=== PATIENT | male | born 1945 | race Caucasian/White ===

== ENCOUNTER → 2017-11-19 10:15 | Outpatient (CLI) | payer MEDICARE, SELFPAY ==
[2017-11-19 12:16] LABS: Add Manual Diff / Slide Review NO; Basophils Percent Auto 1.7 % (0-2); Eosinophils Percent Auto 1.6 % (2-4); Hematocrit 39.3 % (41-53); Lymphocytes Percent Auto 31.1 % (25-40); Mean Corpuscular Hemoglobin 27.6 PG (26-34); Mean Corpuscular Volume 83.7 fL (80-100); Monocytes Percent Auto 9.2 % (3-14); Neutrophils Absolute Auto 3900 /uL (3000-5900); Neutrophils Percent Auto 56.4 % (50-75); Platelet Count 205 X10^3/uL (150-400); Red Cell Distribution Width 14.4 % (11.6-14.8)
[2017-11-19 12:24] LABS: Hemoglobin A1C% w Est Avg Glu 6.3 % (4.0-6.0)
[2017-11-19 12:46] LABS: Blood Urea Nitrogen 19 mg/dL (9-20); Calcium 9.5 mg/dL (8.4-10.2); Carbon Dioxide 26 mmol/L (22-32); Chloride 104 mmol/L (98-107); Estimated Glomerular Filt Rate > 60.0 mL/min (>60); Glucose 62 mg/dL (80-110); HEMOLYSIS < 15 (0-50); Potassium 4.6 mmol/L (3.4-5.1); Sodium 143 mmol/L (137-145)
[2017-11-19 16:44] LABS: Hep C Virus Ab w/Reflex Quant NEGATIVE s/c (NEGATIVE)
== END ==
PROVIDERS: Family Provider Internal Medicine Gastroenterology; PCP Internal Medicine; Visit Provider Internal Medicine
DX: E11.9 Type 2 diabetes mellitus without complications (principal); Z11.59 Encounter for screening for other viral diseases
CPT/HCPCS: 36415; 80048; 83036; 85025; 86803

== ENCOUNTER 2017-12-18 07:25 | Day surgery (SDC) | payer MEDICARE, SELFPAY ==
--- NOTE | 2017-12-18 | PATH_ITS ---
[facility] Accession Number: [id number] . 01 Material submitted: . PART A: GASTRIC BIOPSIES PART B: ESOPHAGEAL BIOPSIES . 02 Diagnosis: A. Stomach, Biopsies: Superificial fragment of gastric mucosa with no diagnostic abnormality. No evidence of Helicobacter organisms on H/E stain. Negative for intestinal metaplasia, dysplasia or malignancy. . B. Esophagus, Biopsies: Squamocolumnar junctional mucosa with specialized intestinal metaplasia; please see comment. Negative for dysplasia or malignancy. [facility]/12/19/2017 . 02 Comment: Part B) The finding of specialized intestinal metaplasia in the gastroesophageal junction biopsy would be consistent with Alston's esophagus in the appropriate endoscopic setting. . 02 Electronically signed: . Phi Caballero MD, PhD, Pathologist NPI- [id number] . 01 Gross description: . Received two formalin-filled containers, both labeled with the patient's name: . A. In a container labeled gastric, the specimen consists of a 0.3 cm portion of tissue, entirely submitted in cassette A. B. In a container labeled esophagus, the specimen consists of two less than 0.1 cm to 0.1 cm portions of tissue, entirely submitted in cassette B. (DC:[id number]) /FRR . 02 Pathologist provided ICD-10: K22.70 . 02 CPT . 423097, 880828 Performed at: 01 [facility] [address], [place], [place] [id number] MD Rome Escamilla MD Phone: [phone] Performed at: 02 [facility] [address] [place], [place] [id number] MD Ken Berry MD Phone: [phone]
[2017-12-18 07:38] VITALS: BP 125/74; PULSE 60; RESP 16; TEMP 36.3; O2SAT 97; BMI 36.1
[2017-12-18] MEDS: MIDAZOLAM 5 MG/5 ML VIAL IV (08:26)
[2017-12-18] MEDS: fentaNYL 100 MCG/2 ML INJ IV (08:28)
[2017-12-18 08:42] VITALS: BP 127/72; PULSE 55; RESP 15; TEMP 35.8; O2SAT 96
[2017-12-18 08:46] VITALS: BP 130/71; PULSE 60; RESP 16; O2SAT 96
[2017-12-18 09:02] VITALS: BP 140/70; PULSE 56; RESP 16; TEMP 36.1; O2SAT 96
--- NOTE | 2017-12-25 13:07 | PM.OP.ENDO ---
Operative Date/Time/Diagnoses Date of procedure: 12/18/17 Time of procedure: 13:07 Pre-op diagnosis: Dysphagia, history of Alston's and GERD Post-op diagnosis: same Procedure & Clinicians Study performed: EGD Same procedure as scheduled: Yes (Same as preop dx) Surgeon: Natanael Razo Procedure Notes Procedure in detail: After informed consent was obtained the patient was placed in the left lateral decubitus position. The video upper scope was placed into the oropharynx and with the patient's health swelled into the esophagus. The esophagus, stomach, and duodenum were carefully examined. On withdrawal, retroflexed view the GE junction was performed. The scope was removed. The patient tolerated procedure well Blood loss none Complications none Sedation Versed 4 mg fentanyl 100 mcg IV titration Total sedation time 10 min Findings 1. Very small 1 cm or less tongue of abnormal tissue above the gastric folds. This was biopsied x2 to rule out Alston's esophagus. Otherwise the squamocolumnar junction was showing no evidence of inflammation. 2. Wide-open Schatzki's ring 3. Mild patchy erythema in the distal stomach biopsy to rule out Helicobacter 4. Normal duodenal bulb and sweep Patient be sent biopsy results. He is to stay on anti secretory medication. Further recommendations will follow the results of the biopsies. If he develops worsened dysphagia that may be due to the Schatzki's ring worsening.
== END 2017-12-18 09:07 | disposition home or self-care (01) ==
PROVIDERS: Family Provider Internal Medicine Gastroenterology; PCP Internal Medicine; Visit Provider Internal Medicine Gastroenterology
PROC: 0DJ08ZZ Inspection of Upper Intestinal Tract, Via Natural or Artificial Opening Endoscopic (ICD-10-PCS; CPT 43235; principal; 2017-12-18 08:30)
DX: K22.70 Barrett's esophagus without dysplasia (principal); K21.9 Gastro-esophageal reflux disease without esophagitis; Z87.19 Personal history of other diseases of the digestive system; K22.2 Esophageal obstruction; I25.10 Atherosclerotic heart disease of native coronary artery without angina pectoris; E11.9 Type 2 diabetes mellitus without complications; I10 Essential (primary) hypertension; E78.5 Hyperlipidemia, unspecified; Z79.4 Long term (current) use of insulin
CPT/HCPCS: 43239; 88305; J2250; J3010

== ENCOUNTER → 2018-01-23 07:14 | Outpatient (CLI) | payer MEDICARE, SELFPAY ==
[2018-01-23 08:19] LABS: Alanine Aminotransferase 30 IU/L (21-72); Albumin 4.1 g/dL (3.5-5.0); Albumin Globulin Ratio 1.5 (1.0-2.8); Alkaline Phosphatase 45 U/L (38-126); Aspartate Aminotransferase 24 IU/L (17-59); BUN Creatinine Ratio 23.8 (6-22); Bilirubin Total 0.9 mg/dL (0.2-1.3); Blood Urea Nitrogen 19 mg/dL (9-20); Calcium 9.1 mg/dL (8.4-10.2); Carbon Dioxide 25 mmol/L (22-32); Chloride 106 mmol/L (98-107); Estimated Glomerular Filt Rate > 60.0 mL/min (>60); Globulin 2.8 g/dL (1.7-4.1); Glucose 170 mg/dL (80-110); HEMOLYSIS < 15 (0-50); Magnesium 1.8 mg/dL (1.6-2.3); Potassium 4.6 mmol/L (3.4-5.1); Sodium 142 mmol/L (137-145); Total Protein 6.9 g/dL (6.3-8.2)
[2018-02-03 09:18] LABS: Lipoprofile NMR SEE SEPERATE REPORT
== END ==
PROVIDERS: Family Provider Internal Medicine Gastroenterology; PCP Internal Medicine; Visit Provider Specialist
DX: E78.2 Mixed hyperlipidemia (principal); I10 Essential (primary) hypertension; E11.9 Type 2 diabetes mellitus without complications
CPT/HCPCS: 36415; 80053; 83704; 83735

== ENCOUNTER 2018-07-30 07:02 | Day surgery (SDC) | payer MEDICARE, SELFPAY ==
--- NOTE | 2018-07-30 | PATH_ITS ---
[facility] Accession Number: [id number] . 01 Material submitted: . PART A: POLYPS TRANSVERSE COLON TIMES 2 PART B: TRANSVERSE COLON POLYP PART C: DESCENDING COLON POLYP . 02 Diagnosis: A. Transverse Colon, Polyps: Tubular adenoma x1. Serrated lesion, favor sessile serrated adenoma x1. . B. Transverse Colon, Polyp: Hyperplastic polyp. . C. Descending Colon, Polyp: Tubular adenoma. [facility]/07/31/2018 . 02 Electronically signed: . Phi Caballero MD, PhD, Pathologist NPI- [id number] . 01 Gross description: . Received three formalin-filled containers, each labeled with the patient's name: . A. In a container labeled polyps transverse colon x2, the specimen consists of four 0.1-0.7 cm portions of tissue, entirely submitted in cassette A. B. In a container labeled transverse colon polyp, the specimen consists of a 0.3 cm portion of tissue, entirely submitted in cassette B. C. In a container labeled descending colon polyp, the specimen consists of a 0.4 cm portion of tissue, entirely submitted in cassette C. (DC:[id number]) /FRR . 02 Pathologist provided ICD-10: D12.3, D12.4 . 02 CPT . 743153, 862394, 323869 Performed at: 01 [facility] [address] [place] [address], [place], [place] [id number] MD Rome Escamilla MD Phone: [phone] Performed at: 02 [facility] [place] [address] [place], [place] [id number] MD Fide Alves MD Phone: [phone]
[2018-07-30 07:35] VITALS: BP 158/69; PULSE 58; RESP 16; TEMP 36.4; O2SAT 94; BMI 37.2
--- NOTE | 2018-07-30 07:44 | PM.HP.1 ---
History of Present Illness Date Patient Seen: 07/30/18 Chief complaint: Colonoscopy Narrative: 73-year-old male with multiple medical problems who is here for colon polyp surveillance. The patient has had a colonoscopy in July 2015 which revealed multiple polyps Patient History Medical History Barretts esophagus (Acute) Coronary artery disease (Acute) GERD (gastroesophageal reflux disease) (Acute) Heart attack (Acute ~09/2016) History of colon polyps (Acute) Hyperlipidemia (Acute) Hypertension (Acute) Obese (Acute) Type 2 diabetes mellitus (Acute) Surgical History H/O basal cell carcinoma excision (Acute ~2005) H/O eye surgery (Acute) History of esophagogastroduodenoscopy (EGD) (Acute) S/P drug eluting coronary stent placement (Acute) Social History household members: spouse Family & Social History Social History: household members spouse Meds Home Medications Medication Instructions Recorded Confirmed Type glimepiride [Amaryl] 8 mg PO QDAY #0 09/22/16 07/30/18 History insulin lispro [Humalog U-100 15 unit SQ TIDCC #0 09/22/16 12/18/17 History Insulin] losartan [Cozaar] 50 mg PO QDAY #0 09/22/16 07/30/18 History metformin [Glucophage XR] 850 mg PO TID #0 09/22/16 07/30/18 History acetaminophen 1,000 mg PO PRN PRN 07/29/18 07/30/18 History aspirin 81 mg PO DAILY 07/29/18 07/30/18 History atorvastatin 80 mg PO DAILY 07/29/18 07/30/18 History carvedilol 25 mg PO BID 07/29/18 07/30/18 History cholecalciferol (vitamin D3) 5,000 unit PO DAILY 07/29/18 07/30/18 History [Vitamin D3] insulin glargine [Lantus Solostar 30 unit SUBCUT BID 07/29/18 07/30/18 History U-100 Insulin] insulin lispro [Humalog KwikPen 20 unit SUBCUT BID 07/29/18 07/30/18 History Insulin] losartan 100 mg PO DAILY 07/29/18 07/30/18 History nitroglycerin 0.4 mg SUBLINGUAL PRN PRN 07/29/18 07/30/18 History ranitidine HCl 150 mg PO BID 07/29/18 07/30/18 History Allergies Allergy/AdvReac Type Severity Reaction Status Date / Time No Known Drug Allergies Allergy Verified 07/30/18 07:49 Exam Narrative Exam Narrative: General: Patient is obese, not in apparent distress Cardiovascular: Regular rate and rhythm, no murmurs, rubs, or gallops; no evidence of edema; no palpable abdominal aortic aneurysm Gastrointestinal: Normoactive bowel sounds, soft, nontender, nondistended, no rebound tenderness, no hepatosplenomegaly, no evidence of hernia Assessment & Plan Assessment & Plan narrative: 73-year-old male with coronary artery disease, type 2 diabetes, and hypertension who is here for colon polyp surveillance Regarding the procedure(s), the risks and potential complications, benefits, and alternatives (including not doing the procedure) were discussed with the patient. The risks include but are not limited to bleeding, splenic injury, infection, perforation which may require surgical intervention, missed lesions, and adverse reactions to sedative medicines. After a question and answer period, the patient agreed to proceed with the procedure(s) and gives informed consent.
[2018-07-30] MEDS: SODIUM CHLORIDE 0.9% 1,000 ML 70 ML IV (08:20)
[2018-07-30] MEDS: MIDAZOLAM 5 MG/5 ML VIAL IV (08:30)
[2018-07-30] MEDS: fentaNYL 250 MCG/5 ML INJ IV (08:30)
--- NOTE | 2018-07-30 08:31 | PM.OP.ENDO ---
Operative Date/Time/Diagnoses Date of procedure: 07/30/18 Procedure Notes Procedure in detail: Surgeon: Jose Young MD Procedure: Colonoscopy with polypectomy Preoperative diagnosis: Colon polyp surveillance Postoperative diagnosis: Colon polyps x4 status post polypectomy, grade 2 internal hemorrhoids Medications: Conscious sedation using 6 mg IV of Midazolam and 200 mcg IV of Fentanyl Preanesthesia Assessment An H and P was performed/updated and the Px?s ASA class is 2. The procedure was discussed in detail with the patient. The potential risks and complications including infection, bleeding, missed lesions, perforation, need for surgery in case of perforation, prolonged hospital stay, and were explained. A brief question and answer period was allotted and once all questions were answered, informed consent was obtained. The patient was brought back to the procedure room and placed on standard monitoring. The patient?s vital signs were monitored continuously throughout the entire procedure. Prior to starting, a timeout was performed to confirm the patient?s identity, allergies, medications, and procedure. Procedure in detail The patient was placed in left lateral decubitus position and once adequate sedation was obtained a MARIAJOSE was performed. The digital rectal examination did not reveal any palpable lesions. The tip of the colonoscope was placed in the anal canal and advanced without difficulty all the way to the cecum which was identified by the appendiceal orifice and the ileocecal valve. Careful examination of all jacob of the colon was performed with irrigation of any residual stool. In the transverse colon, there was note of 2 sessile polyps measuring 6 mm and 10 mm. The polyps were removed by means of cold snare. Resection and retrieval were complete with minimal bleeding In the transverse colon, a 2 mm sessile polyp was found and removed by means of cold Jumbo forceps. Resection and retrieval were complete with minimal bleeding. In the descending colon, a 5 mm sessile polyp was found and removed by means of cold snare. Resection and retrieval were complete with minimal bleeding. Retroflexion was performed in the rectum which revealed grade 2 internal hemorrhoids The patient tolerated the procedure well and will be brought back to the recovery area to be discharged once criteria are met. The prep was judged to be good/excellent and adequate to identify polyps less than 5 mm. The withdrawal time was 13 min. The total physician intraservice time was 25 min. Complications There were no complications and estimated blood loss was minimal. Recommendations: Resume previous diet Continue outPx medications Follow up pathology results Repeat colonoscopy in 3 or 5 years depending on pathology results An emergency contact number was given to the patient for any complications related to the procedure
[2018-07-30 08:59] VITALS: BP 131/75; PULSE 60; RESP 15; TEMP 36.2; O2SAT 99
--- NOTE | 2018-07-30 09:00 | PM.DS.1 ---
History of Present Illness Chief complaint: Colonoscopy Narrative: 73-year-old male with multiple medical problems who is here for colon polyp surveillance. The patient has had a colonoscopy in July 2015 which revealed multiple polyps Discharge Providers Discharge Date: 07/30/18 Primary care physician: Walter Lieberman MD Discharge provider: Jose Young MD Exam Vital Signs (past 8 hours): - 07/30/18 07:35 Temperature 97.5 F L Pulse Rate 58 L Respiratory Rate 16 Blood Pressure 158/69 H Pulse Oximetry 94 Oxygen Delivery Method Room Air Narrative Exam Narrative: General: Patient is obese, not in apparent distress Cardiovascular: Regular rate and rhythm, no murmurs, rubs, or gallops; no evidence of edema; no palpable abdominal aortic aneurysm Gastrointestinal: Normoactive bowel sounds, soft, nontender, nondistended, no rebound tenderness, no hepatosplenomegaly, no evidence of hernia Discharge Plan Discharge Plan Patient Disposition: Home Discharge Med Rec/Prescriptions Prescriptions: Continued insulin lispro [Humalog U-100 Insulin] 100 UNIT/1 ML solution 15 unit SQ TIDCC Qty: 0 RF: 0 metformin [Glucophage XR] 500 MG tablet extended release 24 hr 850 mg PO TID Qty: 0 RF: 0 losartan [Cozaar] 50 MG tablet 50 mg PO QDAY Qty: 0 RF: 0 glimepiride [Amaryl] 4 MG tablet 8 mg PO QDAY Qty: 0 RF: 0 atorvastatin 80 mg Tablet 80 mg PO DAILY RF: 0 carvedilol 25 mg Tablet 25 mg PO BID RF: 0 acetaminophen 500 mg Tablet 1,000 mg PO PRN PRN (Reason: Pain) RF: 0 nitroglycerin 0.4 mg Tablet, Sublingual 0.4 mg SUBLINGUAL PRN PRN (Reason: Chest Pain) RF: 0 aspirin 81 mg Tablet,Chewable 81 mg PO DAILY RF: 0 ranitidine HCl 150 mg Capsule 150 mg PO BID RF: 0 losartan 100 mg Tablet 100 mg PO DAILY RF: 0 Humalog KwikPen Insulin 100 unit/mL Insulin Pen 20 unit SUBCUT BID RF: 0 Lantus Solostar U-100 Insulin 100 unit/mL (3 mL) Insulin Pen 30 unit SUBCUT BID RF: 0 cholecalciferol (vitamin D3) [Vitamin D3] 5,000 unit Tablet 5,000 unit PO DAILY RF: 0 Follow up/Referrals: Walter Lieberman MD [Primary Care Provider] - Discharge Orders: Discharge (Order); Ordered 07/30/18 Ordered By: Jose Young Provider Discharge Instructions Diet: Diet as Tolerated Visit Report/Discharge Packet Stand Alone Forms: Colonoscopy Result: [facility] Discharge Data Primary Care Provider: Walter Lieberman Attending Provider: Jose Young
[2018-07-30 09:04] VITALS: BP 127/77; PULSE 59; RESP 10; O2SAT 96
[2018-07-30 09:09] VITALS: BP 129/68; PULSE 55; RESP 15; O2SAT 97
[2018-07-30 09:14] VITALS: BP 127/70; PULSE 57; RESP 10; O2SAT 96
[2018-07-30 09:22] VITALS: BP 147/83; PULSE 61; RESP 16; TEMP 36.6; O2SAT 97
--- NOTE | 2018-07-30 09:25 | SUR.PHASEII ---
Call light provided. Spouse at bedside. Discharge instructions reviewed with pt and spouse.
== END 2018-07-30 09:39 | disposition home or self-care (01) ==
PROVIDERS: Family Provider Internal Medicine Gastroenterology; PCP Internal Medicine; Visit Provider Internal Medicine Gastroenterology
PROC: 0DJD8ZZ Inspection of Lower Intestinal Tract, Via Natural or Artificial Opening Endoscopic (ICD-10-PCS; CPT 45378; principal; 2018-07-30 08:30)
DX: Z86.010 Personal history of colon polyps (principal); K64.1 Second degree hemorrhoids; D12.3 Benign neoplasm of transverse colon; D12.4 Benign neoplasm of descending colon; I25.10 Atherosclerotic heart disease of native coronary artery without angina pectoris; E11.9 Type 2 diabetes mellitus without complications; E78.5 Hyperlipidemia, unspecified; I10 Essential (primary) hypertension; K21.9 Gastro-esophageal reflux disease without esophagitis; Z79.4 Long term (current) use of insulin
CPT/HCPCS: 45380; 88305; J2250; J3010

== ENCOUNTER → 2018-08-05 07:29 | Outpatient (CLI) | payer MEDICARE, SELFPAY ==
[2018-08-05 09:45] LABS: Alanine Aminotransferase 34 IU/L (21-72); Albumin 4.3 g/dL (3.5-5.0); Albumin Globulin Ratio 1.4 (1.0-2.8); Alkaline Phosphatase 49 U/L (38-126); Aspartate Aminotransferase 24 IU/L (17-59); BUN Creatinine Ratio 18.8 (6-22); Bilirubin Total 0.9 mg/dL (0.2-1.3); Blood Urea Nitrogen 15 mg/dL (9-20); Calcium 9.1 mg/dL (8.4-10.2); Carbon Dioxide 26 mmol/L (22-32); Chloride 100 mmol/L (98-107); Estimated Glomerular Filt Rate > 60.0 mL/min (>60); Glucose 163 mg/dL (80-110); HEMOLYSIS < 15 (0-50); Magnesium 1.8 mg/dL (1.6-2.3); Potassium 4.7 mmol/L (3.4-5.1); Sodium 137 mmol/L (137-145); Total Protein 7.3 g/dL (6.3-8.2)
[2018-08-07 12:00] LABS: Lipoprofile NMR SEE SEPARATE REPORTS
== END ==
PROVIDERS: Family Provider Internal Medicine; PCP Internal Medicine; Visit Provider Specialist
DX: E78.2 Mixed hyperlipidemia (principal); I10 Essential (primary) hypertension
CPT/HCPCS: 36415; 80053; 83704; 83735

== ENCOUNTER → 2019-05-04 08:55 | Outpatient (CLI) | payer MEDICARE, SELFPAY ==
[2019-05-04 09:54] LABS: Alanine Aminotransferase 20 IU/L (<50); Albumin 4.2 g/dL (3.5-5.0); Albumin Globulin Ratio 1.6 (1.0-2.8); Alkaline Phosphatase 52 U/L (38-126); Aspartate Aminotransferase 21 IU/L (17-59); Blood Urea Nitrogen 14 mg/dL (9-20); Calcium 9.9 mg/dL (8.4-10.2); Carbon Dioxide 22 mmol/L (22-32); Chloride 102 mmol/L (98-107); Estimated Glomerular Filt Rate > 60.0 mL/min (>60); Globulin 2.6 g/dL (1.7-4.1); Glucose 194 mg/dL (80-110); HEMOLYSIS < 15 (0-50); Magnesium 1.7 mg/dL (1.6-2.3); Potassium 4.6 mmol/L (3.4-5.1); Sodium 136 mmol/L (137-145); Total Protein 6.8 g/dL (6.3-8.2)
[2019-05-07 10:58] LABS: Lipoprofile NMR SEE SEPERATE REPORT
== END ==
PROVIDERS: Family Provider Internal Medicine; PCP Internal Medicine; Visit Provider Specialist
DX: E78.2 Mixed hyperlipidemia (principal); I10 Essential (primary) hypertension
CPT/HCPCS: 36415; 80053; 83704; 83735

== ENCOUNTER 2019-06-15 12:09 | Emergency (ER) | payer MEDICARE, SELFPAY ==
[2019-06-15 12:10] VITALS: BP 194/81; PULSE 68; RESP 14; TEMP 36.7; O2SAT 100; BMI 37.5
[2019-06-15 12:25] VITALS: PULSE 68
--- NOTE | 2019-06-15 12:25 | DI.RAD.S_ITS ---
PROCEDURE: XR SHOULDER RT MIN 2V INDICATIONS: fall, right shoulder pain, worse w/ movement up TECHNIQUE: 3 views of the shoulder were acquired. COMPARISON: [facility], , SHOULDER MINIMUM 2VIEW RIGHT, 05/29/2017, 9:18. FINDINGS: Bones: No fractures identified. Mild subluxation of the distal clavicle in relation to the acromion. A small ossicle at the acromion appears similar to the prior radiographs from 2018. No suspicious bony lesions. Visualized ribs appear intact. Degenerative change and hypertrophy at the acromioclavicular joint. Soft tissues: No suspicious soft tissue calcifications. IMPRESSION: Mild subluxation of the distal clavicle in relation to the acromion. No acute fracture identified. Dictated by: Vitor Amin M.D. on 06/15/2019 at 13:10 Approved by: Vitor Amin M.D. on 06/15/2019 at 13:12
--- NOTE | 2019-06-15 14:01 | ED.GENADULT ---
HPI - General Adult General Chief complaint: Extremity Injury, Upper Stated complaint: Fell On Steps Hurt Right Upper Extremities Time Seen by Provider: 06/15/19 13:45 Source: patient Mode of arrival: Ambulatory Limitations: no limitations History of Present Illness HPI narrative: 74-year-old male here for evaluation of right shoulder injury. Patient states that earlier today he was going down the stairs of his deck and slipped on some ice. States that he thought he landed on his right shoulder. Did not hit his head. No loss of consciousness. Is on aspirin but no other anticoagulation. No other injuries reported from the event. Related Data Home Medications Medication Instructions Recorded Confirmed glimepiride [Amaryl] 8 mg PO QDAY #0 09/22/16 07/30/18 insulin lispro [Humalog U-100 15 unit SQ TIDCC #0 09/22/16 12/18/17 Insulin] losartan [Cozaar] 50 mg PO QDAY #0 09/22/16 07/30/18 metformin [Glucophage XR] 850 mg PO TID #0 09/22/16 07/30/18 Humalog KwikPen Insulin 20 unit SUBCUT BID 07/29/18 07/30/18 Lantus Solostar U-100 Insulin 30 unit SUBCUT BID 07/29/18 07/30/18 acetaminophen 1,000 mg PO PRN PRN 07/29/18 07/30/18 aspirin 81 mg PO DAILY 07/29/18 07/30/18 atorvastatin 80 mg PO DAILY 07/29/18 07/30/18 carvedilol 25 mg PO BID 07/29/18 07/30/18 cholecalciferol (vitamin D3) 5,000 unit PO DAILY 07/29/18 07/30/18 [Vitamin D3] losartan 100 mg PO DAILY 07/29/18 07/30/18 nitroglycerin 0.4 mg SUBLINGUAL PRN PRN 07/29/18 07/30/18 ranitidine HCl 150 mg PO BID 07/29/18 07/30/18 Previous Rx's Medication Instructions Recorded tramadol [Ultram] 50 mg PO Q6H PRN #7 tab 06/15/19 Allergies Allergy/AdvReac Type Severity Reaction Status Date / Time No Known Drug Allergies Allergy Verified 06/15/19 12:25 Review of Systems Constitutional Constitutional: Denies fever(s), Denies headache(s) and Denies weakness ENT Ears, Nose, Mouth, and Throat: Denies vertigo, Denies dizziness, Denies headache(s), Denies neck pain and Denies disequilibrium Cardiovascular Cardiovascular: Denies chest pain and Denies dyspnea Respiratory Respiratory: Denies dyspnea Gastrointestinal Gastrointestinal: Denies abdominal pain, Denies nausea and Denies vomiting Musculoskeletal Musculoskeletal: Denies back pain and Denies neck pain Comments: Right shoulder pain Integumentary/Breasts Skin/Breast: Denies lesions and Denies rash Neurologic Neurologic: Denies behavioral changes, Denies confusion, Denies vertigo, Denies dizziness, Denies headache(s), Denies disequilibrium and Denies weakness Psychiatric Psychiatric: Denies behavioral changes and Denies confusion Hematologic/Lymphatic Hematologic/Lymphatic: Denies easy bleeding and Denies easy bruising Patient History Medical History Barretts esophagus (Acute) Coronary artery disease (Acute) GERD (gastroesophageal reflux disease) (Acute) Heart attack (Acute ~09/2016) History of colon polyps (Acute) Hyperlipidemia (Acute) Hypertension (Acute) Obese (Acute) Type 2 diabetes mellitus (Acute) Surgical History (Updated 07/29/18 @ 14:54 by Yadi Reynoso RN) H/O basal cell carcinoma excision (Acute ~2005) H/O eye surgery (Acute) History of esophagogastroduodenoscopy (EGD) (Acute) S/P drug eluting coronary stent placement (Acute) Social History household members: spouse Smoking Status: Never smoker Smoking Status: Never smoker alcohol intake frequency: 0-2 drinks per day Substance Use Type: does not use Exam Initial Vital Signs Initial Vital Signs: Vital Signs Temperature 98.1 F 06/15/19 12:10 Pulse Rate 68 06/15/19 12:10 Respiratory Rate 14 06/15/19 12:10 Blood Pressure 194/81 H 06/15/19 12:10 Pulse Oximetry 100 06/15/19 12:10 Const General: cooperative, comfortable and well developed Limitations: mental status not altered HENMT Head: normal to inspection and normocephalic Resp Effort & Inspection: normal respiratory effort Auscultation: clear to auscultation bilaterally Cardio Rate: regular rate Rhythm: regular rhythm Back/Spine/Pelvis Cervical Spine: No cervical spinal tenderness Thoracic/Lumbar Spine: No thoracic spinal tenderness and No lumbar spinal tenderness Skin Lesions: no lesions Rashes: no rashes Neuro General: alert, awake and oriented x3 Cognition: normal cognition Speech: speech normal Extrem Other: Patient has tenderness to palpation over the AC joint of the right shoulder. Right shoulder range of motion limited secondary to pain. No other extremity abnormalities found Scores GCS Causey coma scale eye opening: Spontaneous Pb coma scale verbal response: Orientated Pb coma scale motor response: Obey commands Causey coma scale total score: 15 Nexus Score for C-Spine Focal Neurologic deficit present: No Midline spinal tenderness present: No Altered level of conciousness present: No Intoxication present: No Distracting Injury Present: No Nexus Criteria for C-spine: 0 Course Orders Ordered: ED Orders 06/15/19 12:25 XR shoulder RT min 2V Stat Vital Signs Vital signs: Vital Signs - 8 hr 06/15/19 12:10 06/15/19 12:25 Temperature 98.1 F Pulse Rate 68 Pulse Rate [Right Radial] 68 Respiratory Rate 14 Blood Pressure 194/81 H Pulse Oximetry 100 Medical Decision Making Imaging Data Extremity x-ray #1: Radiologist's Impression: [address] [address] XRay Report Signed Patient: [place] Moe KMR#: [id number] : 6Acct:[id number] Age/Sex: 74 / MDate of Service: 06/15/19 Loc: ED Accession Number: [id number] Procedure: XR shoulder RT min 2V Ordering Provider: Kelly Reis D.O. PROCEDURE: XR SHOULDER RT MIN 2V INDICATIONS: fall, right shoulder pain, worse w/ movement up TECHNIQUE: 3 views of the shoulder were acquired. COMPARISON: [facility], , SHOULDER MINIMUM 2VIEW RIGHT, 05/29/2017, 9:18. FINDINGS: Bones: No fractures identified. Mild subluxation of the distal clavicle in relation to the acromion. A small ossicle at the acromion appears similar to the prior radiographs from 2018. No suspicious bony lesions. Visualized ribs appear intact. Degenerative change and hypertrophy at the acromioclavicular joint. Soft tissues: No suspicious soft tissue calcifications. IMPRESSION: Mild subluxation of the distal clavicle in relation to the acromion. No acute fracture identified. Dictated by: Vitor Amin M.D. on 06/15/2019 at 13:10 Approved by: Vitor Amin M.D. on 06/15/2019 at 13:12 [facility] Narrative Medical decision making narrative: History and physical exam and x-rays consistent with a right AC shoulder separation. No other signs of fractures or dislocations. No other injuries reported by the patient or found on the exam. Did not feel any to head CT or cervical spine CT. I did discuss this diagnosis with him. Will do symptom treatment. He is going to contact his primary doctor about a follow-up with physical therapy. He is given return precautions and follow-up instructions. He expressed understanding and agreement plan. Discharge Plan Departure Patient Disposition: Home Clinical Impression: Shoulder separation Discharge Date/Time: 06/15/19 14:08 Instructions: How To Perform RICE (Rest, Ice, Compress, Elevate), AC Joint Separation Activity Restrictions/Additional Instructions: Recommend that tomorrow you contact your primary doctor's office about a referral to get physical therapy. Take the medications as directed. Return to the emergency department for any new or worsening symptoms Prescriptions: New tramadol [Ultram] 50 mg tablet 50 mg PO Q6H PRN (Reason: pain) Qty: 7 RF: 0 No Action insulin lispro [Humalog U-100 Insulin] 100 UNIT/1 ML solution 15 unit SQ TIDCC Qty: 0 RF: 0 metformin [Glucophage XR] 500 MG tablet extended release 24 hr 850 mg PO TID Qty: 0 RF: 0 losartan [Cozaar] 50 MG tablet 50 mg PO QDAY Qty: 0 RF: 0 glimepiride [Amaryl] 4 MG tablet 8 mg PO QDAY Qty: 0 RF: 0 atorvastatin 80 mg Tablet 80 mg PO DAILY RF: 0 carvedilol 25 mg Tablet 25 mg PO BID RF: 0 acetaminophen 500 mg Tablet 1,000 mg PO PRN PRN (Reason: Pain) RF: 0 nitroglycerin 0.4 mg Tablet, Sublingual 0.4 mg SUBLINGUAL PRN PRN (Reason: Chest Pain) RF: 0 aspirin 81 mg Tablet,Chewable 81 mg PO DAILY RF: 0 ranitidine HCl 150 mg Capsule 150 mg PO BID RF: 0 losartan 100 mg Tablet 100 mg PO DAILY RF: 0 Humalog KwikPen Insulin 100 unit/mL Insulin Pen 20 unit SUBCUT BID RF: 0 Lantus Solostar U-100 Insulin 100 unit/mL (3 mL) Insulin Pen 30 unit SUBCUT BID RF: 0 cholecalciferol (vitamin D3) [Vitamin D3] 5,000 unit Tablet 5,000 unit PO DAILY RF: 0 Referrals: Madi Parra MD [Primary Care Provider] -
== END 2019-06-15 14:08 | disposition home or self-care (01) ==
PROVIDERS: Emergency Provider Emergency Medicine; Family Provider Internal Medicine; PCP Internal Medicine
DX: S43.006A Unspecified dislocation of unspecified shoulder joint, initial encounter (principal); W10.9XXA Fall (on) (from) unspecified stairs and steps, initial encounter; Y93.29 Activity, other involving ice and snow
CPT/HCPCS: 73030; 99283

== ENCOUNTER → 2020-01-16 08:05 | Outpatient (CLI) | payer MEDICARE, SELFPAY ==
[2020-01-16 10:34] LABS: Alanine Aminotransferase 24 IU/L (<50); Albumin 4.3 g/dL (3.5-5.0); Albumin Globulin Ratio 1.5 (1.0-2.8); Alkaline Phosphatase 45 U/L (38-126); Aspartate Aminotransferase 25 IU/L (17-59); BUN Creatinine Ratio 24.1 (6-22); Blood Urea Nitrogen 20 mg/dL (9-20); Calcium 9.2 mg/dL (8.4-10.2); Carbon Dioxide 23 mmol/L (22-32); Chloride 103 mmol/L (98-107); Estimated Glomerular Filt Rate > 60.0 mL/min (>60); Globulin 2.8 g/dL (1.7-4.1); Glucose 161 mg/dL (80-110); HEMOLYSIS < 15 (0-50); Magnesium 1.8 mg/dL (1.6-2.3); Potassium 4.4 mmol/L (3.4-5.1); Sodium 136 mmol/L (137-145); Total Protein 7.1 g/dL (6.3-8.2)
[2020-02-15 14:39] LABS: LDL Particle 861
[2020-02-15 14:41] LABS: LDL-Cholsterol 53
[2020-02-15 14:42] LABS: HDL-Cholesterol 38; Triglycerides 160
[2020-02-15 14:43] LABS: Cholesterol, Total 118; HDL-Particle (Total) 28.3; Small LDL- Particle 576
[2020-02-15 14:44] LABS: LDL Size 20.1
[2020-02-15 14:46] LABS: LP-IR Score 75
== END ==
PROVIDERS: Family Provider Internal Medicine; PCP Internal Medicine; Referring Provider Specialist; Visit Provider Specialist
DX: E78.2 Mixed hyperlipidemia (principal); I10 Essential (primary) hypertension
CPT/HCPCS: 36415; 80053; 80061; 83704; 83735

== ENCOUNTER → 2020-09-22 09:51 | Outpatient (CLI) | payer MEDICARE, SELFPAY ==
[2020-09-22 10:57] LABS: Alanine Aminotransferase 21 IU/L (<50); Albumin Globulin Ratio 1.4 (1.0-2.8); Alkaline Phosphatase 65 U/L (38-126); Aspartate Aminotransferase 26 IU/L (17-59); BUN Creatinine Ratio 18.8 (6-22); Bilirubin Total 0.8 mg/dL (0.2-1.3); Blood Urea Nitrogen 15 mg/dL (9-20); Calcium 9.2 mg/dL (8.4-10.2); Carbon Dioxide 25 mmol/L (22-32); Chloride 104 mmol/L (98-107); Estimated Glomerular Filt Rate > 60.0 mL/min (>60); Globulin 2.8 g/dL (1.7-4.1); Glucose 153 mg/dL (80-110); HEMOLYSIS < 15 (0-50); Magnesium 1.9 mg/dL (1.6-2.3); Potassium 4.9 mmol/L (3.4-5.1); Sodium 137 mmol/L (137-145); Total Protein 6.8 g/dL (6.3-8.2)
[2020-09-24 07:36] LABS: Cholesterol, Total 120 mg/dL (100-199); HDL-Cholesterol 45 mg/dL (>39); HDL-Particle (Total) 29.1 umol/L (>=30.5); LDL Particle 993 nmol/L (<1000); LDL Size 20.3 nm (>20.5); LDL-Cholsterol 60 mg/dL (0-99); LP-IR Score 45 (<=45); Small LDL- Particle 635 nmol/L (<=527); Triglycerides 75 mg/dL (0-149)
== END ==
PROVIDERS: Family Provider Internal Medicine; PCP Internal Medicine; Referring Provider Specialist; Visit Provider Specialist
DX: I10 Essential (primary) hypertension (principal); E78.2 Mixed hyperlipidemia; E11.9 Type 2 diabetes mellitus without complications; Z79.4 Long term (current) use of insulin
CPT/HCPCS: 36415; 80053; 80061; 83704; 83735

== ENCOUNTER → 2021-01-25 10:10 | Outpatient (CLI) | payer MEDICARE, SELFPAY | PROVIDERS: Family Provider Internal Medicine; PCP Internal Medicine; Referring Provider Internal Medicine; Visit Provider Internal Medicine | DX: Z11.59 Encounter for screening for other viral diseases (principal) | CPT/HCPCS: 36415; 86803 ==

== ENCOUNTER → 2021-07-12 09:30 | Outpatient (CLI) | payer MEDICARE, SELFPAY ==
[2021-07-12 10:20] LABS: Alanine Aminotransferase 22 IU/L (<50); Albumin 4.4 g/dL (3.5-5.0); Albumin Globulin Ratio 1.7 (1.0-2.8); Alkaline Phosphatase 53 U/L (38-126); Aspartate Aminotransferase 29 IU/L (17-59); BUN Creatinine Ratio 17.4 (6-22); Blood Urea Nitrogen 16 mg/dL (9-20); Calcium 9.1 mg/dL (8.4-10.2); Carbon Dioxide 25 mmol/L (22-32); Chloride 104 mmol/L (98-107); Estimated Glomerular Filt Rate > 60.0 mL/min (>60); Globulin 2.6 g/dL (1.7-4.1); Glucose 180 mg/dL (80-110); HEMOLYSIS < 15 (0-50); Magnesium 1.7 mg/dL (1.6-2.3); Potassium 4.7 mmol/L (3.4-5.1); Sodium 136 mmol/L (137-145)
[2021-07-14 10:37] LABS: Cholesterol, Total 124 mg/dL (100-199); HDL-Cholesterol 45 mg/dL (>39); HDL-Particle (Total) 30.1 umol/L (>=30.5); Historical Reading Comment: (.); LDL Particle 735 nmol/L (<1000); LDL Size 20.7 nm (>20.5); LDL-Cholsterol 61 mg/dL (0-99); LP-IR Score 53 (<=45); Small LDL- Particle 336 nmol/L (<=527); Triglycerides 98 mg/dL (0-149)
== END ==
PROVIDERS: Family Provider Internal Medicine; PCP Internal Medicine; Referring Provider Physician Assistant Medical; Visit Provider Specialist
DX: I10 Essential (primary) hypertension (principal); E78.2 Mixed hyperlipidemia
CPT/HCPCS: 36415; 80053; 80061; 83704; 83735

== ENCOUNTER 2021-07-17 09:35 | Emergency (ER) | payer MEDICARE, SELFPAY ==
[2021-07-17 09:41] VITALS: BP 152/65; PULSE 60; RESP 14; TEMP 36.5; O2SAT 99; BMI 37.5
--- NOTE | 2021-07-17 09:47 | DI.US.S_ITS ---
PROCEDURE: US PERIPH VENOUS LOW EXTREM RT INDICATIONS: EDEMA X 1 WEEK TECHNIQUE: Real-time imaging, as well as color and pulse Doppler interrogation, were performed of the lower extremity deep veins from the inguinal ligament to the popliteal fossa. COMPARISON: None. FINDINGS: The common femoral, femoral and popliteal veins are normally compressible, and free of intraluminal thrombus. Color and pulse Doppler demonstrate normal phasic intraluminal flow. There is normal augmentation response to distal compression maneuver. IMPRESSION: No deep venous thrombosis. Dictated by: Vivian Irby M.D. on 07/17/2021 at 10:44 Approved by: Vivian Irby M.D. on 07/17/2021 at 11:27
[2021-07-17 09:55] VITALS: PULSE 60
--- NOTE | 2021-07-17 09:56 | ED.EXTPRO ---
HPI - Extremity Problem General Chief complaint: Extremity Problem,Nontraumatic Stated complaint: rt leg pain, swelling Time Seen by Provider: 07/17/21 09:56 Source: patient and family Mode of arrival: Ambulatory History of Present Illness HPI Narrative: Nine days ago the patient was bent forward, leaning into his car. His right tibia was against the edge of the car. As he leaned into the car, he felt a pop in his right calf. The initial severe pain is lessened. Pulmonary is focused in the posterior calf. has swelling to the right anterior tibia area, as well as down to the right ankle. He was initially quite limited in his motion. He is now walking much better. The swelling persists. He has no his history of DVT. He is not on anticoagulants. He has no chest pain, cough, dyspnea or hemoptysis. Related Data Home Medications Medication Instructions Recorded Confirmed glimepiride 4 mg tablet (Amaryl) 8 mg PO QDAY #0 09/22/16 07/30/18 insulin lispro 100 unit/mL 15 unit SQ TIDCC #0 09/22/16 12/18/17 subcutaneous solution (Humalog U-100 Insulin) losartan 50 mg tablet (Cozaar) 50 mg PO QDAY #0 09/22/16 07/30/18 metformin 500 mg tablet,extended 850 mg PO TID #0 09/22/16 07/30/18 release 24 hr (Glucophage XR) acetaminophen 500 mg tablet 1,000 mg PO PRN PRN 07/29/18 07/30/18 aspirin 81 mg chewable tablet 81 mg PO DAILY 07/29/18 07/30/18 atorvastatin 80 mg tablet 80 mg PO DAILY 07/29/18 07/30/18 carvedilol 25 mg tablet 25 mg PO BID 07/29/18 07/30/18 cholecalciferol (vitamin D3) 125 5,000 unit PO DAILY 07/29/18 07/30/18 mcg (5,000 unit) tablet (Vitamin D3) insulin glargine 100 unit/mL (3 30 unit SUBCUT BID 07/29/18 07/30/18 mL) subcutaneous pen (Lantus Solostar U-100 Insulin) insulin lispro 100 unit/mL 20 unit SUBCUT BID 07/29/18 07/30/18 subcutaneous pen (Humalog KwikPen (U-100) Insulin) losartan 100 mg tablet 100 mg PO DAILY 07/29/18 07/30/18 nitroglycerin 0.4 mg sublingual 0.4 mg SUBLINGUAL PRN PRN 07/29/18 07/30/18 tablet ranitidine HCl 150 mg capsule 150 mg PO BID 07/29/18 07/30/18 Previous Rx's Medication Instructions Recorded tramadol 50 mg tablet (Ultram) 50 mg PO Q6H PRN #7 tab 06/15/19 Allergies Allergy/AdvReac Type Severity Reaction Status Date / Time No Known Drug Allergies Allergy Verified 07/17/21 09:46 Review of Systems Constitutional Constitutional: Denies chills, Denies fatigue, Denies fever(s) and Denies frequent falls ENT Ears, Nose, Mouth, and Throat: Denies vertigo and Denies dizziness Cardiovascular Cardiovascular: Denies chest pain, Denies rapid heart rate, Denies pedal edema and Denies dyspnea Respiratory Respiratory: Denies cough, Denies hemoptysis and Denies dyspnea Gastrointestinal Gastrointestinal: Denies abdominal pain Musculoskeletal Musculoskeletal: Reports as per HPI Integumentary/Breasts Skin/Breast: Denies change in pigmentation, Denies lesions and Denies rash Neurologic Neurologic: Denies confusion, Denies vertigo, Denies dizziness and Denies frequent falls Psychiatric Psychiatric: Denies confusion Endocrine Endocrine: Denies fatigue Hematologic/Lymphatic On Anticoagulants: No Patient History Medical History Barretts esophagus Coronary artery disease GERD (gastroesophageal reflux disease) Heart attack (~09/2016) History of colon polyps Hyperlipidemia Hypertension Obese Type 2 diabetes mellitus Surgical History H/O basal cell carcinoma excision (~2005) H/O eye surgery History of esophagogastroduodenoscopy (EGD) S/P drug eluting coronary stent placement Social History household members: spouse Smoking Status: Never smoker Smoking Status: Never smoker alcohol intake frequency: 0-2 drinks per day Substance Use Type: does not use Exam Initial Vital Signs Initial Vital Signs: Vital Signs Temperature 97.7 F 07/17/21 09:41 Pulse Rate 60 07/17/21 09:41 Respiratory Rate 14 07/17/21 09:41 Blood Pressure 152/65 H 07/17/21 09:41 Pulse Oximetry 99 07/17/21 09:41 Const General: cooperative, healthy appearing and comfortable [facility] Head: normocephalic and atraumatic Resp Effort & Inspection: normal respiratory effort Auscultation: clear to auscultation bilaterally Cardio Rate: regular rate Rhythm: regular rhythm Heart Sounds: S1 normal, S2 normal, no click, no murmurs and no rubs Skin General: no rashes or lesions noted Neuro General: patient alert, patient awake, patient oriented x3 and no focal motor deficits Extrem Other: Tenderness in the right calf muscle, palpable tear to the lateral aspect of the gastrocnemius muscle. Edema in the right calf, as well as the right anterior tibia. No tenderness along the tibia bone. Edema extends the ankle. His ankle is nontender. Homans sign is negative. The right dorsalis pedis pulses normal. Psych Mental Status: mental status grossly normal Course Orders Ordered: ED Orders 07/17/21 09:47 US periph venous low extrem rt Stat Vital Signs Vital signs: Vital Signs - 8 hr 07/17/21 09:41 07/17/21 09:55 Temperature 97.7 F Pulse Rate 60 Pulse Rate [Right Dorsalis Pedis] 60 Respiratory Rate 14 Blood Pressure 152/65 H Pulse Oximetry 99 MDM - Extremity (Nontraumatic) Imaging Data US - DVT: Radiologist's Impression: No evidence of right leg DVT. Discharge Plan Departure Patient Disposition: Home Clinical Impression: Gastrocnemius muscle tear Activity Restrictions/Additional Instructions: Tylenol as needed for pain. Walk on flat surfaces, slowly increase your pace. As you are feeling better, you can advance to inclines with your walking. Recheck with your doctor if not improved within 3 weeks. Return here as necessary. Prescriptions: No Action insulin lispro [Humalog U-100 Insulin] 100 UNIT/1 ML solution 15 unit SQ TIDCC Qty: 0 0RF metformin [Glucophage XR] 500 MG tablet extended release 24 hr 850 mg PO TID Qty: 0 0RF losartan [Cozaar] 50 MG tablet 50 mg PO QDAY Qty: 0 0RF glimepiride [Amaryl] 4 MG tablet 8 mg PO QDAY Qty: 0 0RF atorvastatin 80 mg Tablet 80 mg PO DAILY 0RF carvedilol 25 mg Tablet 25 mg PO BID 0RF acetaminophen 500 mg Tablet 1,000 mg PO PRN PRN (Reason: Pain) 0RF nitroglycerin 0.4 mg Tablet, Sublingual 0.4 mg SUBLINGUAL PRN PRN (Reason: Chest Pain) 0RF Label Comments: Hasn't needed since stents aspirin 81 mg Tablet,Chewable 81 mg PO DAILY 0RF ranitidine HCl 150 mg Capsule 150 mg PO BID 0RF losartan 100 mg Tablet 100 mg PO DAILY 0RF Humalog KwikPen Insulin 100 unit/mL Insulin Pen 20 unit SUBCUT BID 0RF Lantus Solostar U-100 Insulin 100 unit/mL (3 mL) Insulin Pen 30 unit SUBCUT BID 0RF cholecalciferol (vitamin D3) [Vitamin D3] 5,000 unit Tablet 5,000 unit PO DAILY 0RF tramadol [Ultram] 50 mg tablet 50 mg PO Q6H PRN (Reason: pain) Qty: 7 0RF Referrals: Hola Grayson MD [Primary Care Provider] -
[2021-07-17 11:44] VITALS: BP 142/78; PULSE 60; RESP 18; O2SAT 99
== END 2021-07-17 11:46 | disposition home or self-care (01) ==
PROVIDERS: Emergency Provider Emergency Medicine; Family Provider Internal Medicine; PCP Internal Medicine
DX: S86.111A Strain of other muscle(s) and tendon(s) of posterior muscle group at lower leg level, right leg, initial encounter (principal); X58.XXXA Exposure to other specified factors, initial encounter; Y93.89 Activity, other specified
CPT/HCPCS: 93971; 99283; 99284

== ENCOUNTER → 2021-10-23 09:27 | Outpatient (CLI) | payer MEDICARE, SELFPAY ==
[2021-10-23 10:21] LABS: Hematocrit 38.1 % (41-53); Hemoglobin 12.3 g/dL (13.5-17.5); Mean Corpuscular HGB Conc 32.3 % (30-36); Mean Corpuscular Hemoglobin 26.1 PG (26-34); Platelet Count 189 X10^3/uL (150-400); Red Blood Cell Count 4.71 X10^6/uL (4.5-5.9); Red Cell Distribution Width 15.7 % (11.6-14.8); White Blood Cell Count 5.8 X10^3/uL (4.5-11.0)
[2021-10-23 10:27] LABS: Hemoglobin A1C% w Est Avg Glu 7.5 % (4.0-6.0)
[2021-10-23 10:32] LABS: Alanine Aminotransferase 20 IU/L (<50); Albumin 4.4 g/dL (3.5-5.0); Albumin Globulin Ratio 1.4 (1.0-2.8); Alkaline Phosphatase 47 U/L (38-126); Aspartate Aminotransferase 24 IU/L (17-59); BUN Creatinine Ratio 14.7 (6-22); Bilirubin Total 0.9 mg/dL (0.2-1.3); Blood Urea Nitrogen 14 mg/dL (9-20); Calcium 9.1 mg/dL (8.4-10.2); Carbon Dioxide 29 mmol/L (22-32); Chloride 103 mmol/L (98-107); Estimated Glomerular Filt Rate > 60 mL/min (>60); Globulin 3.1 g/dL (1.7-4.1); Glucose 90 mg/dL (80-110); HEMOLYSIS < 15 (0-50); Sodium 138 mmol/L (137-145); Total Protein 7.5 g/dL (6.3-8.2)
[2021-10-23 10:42] LABS: Potassium 4.6 mmol/L (3.4-5.1)
[2021-10-23 10:55] LABS: Creatinine Urine Random 47.9 mg/dL
[2021-10-23 10:58] LABS: Microalbumi Creatinin Ratio Ur 20.8 ug/mg CR (<30)
[2021-10-23 11:02] LABS: Prostate Specific Antigen 5.69 ng/mL (0.10-4.00)
== END ==
PROVIDERS: Family Provider Internal Medicine; PCP Internal Medicine; Referring Provider Internal Medicine; Visit Provider Internal Medicine
DX: I10 Essential (primary) hypertension (principal); E11.59 Type 2 diabetes mellitus with other circulatory complications; I25.10 Atherosclerotic heart disease of native coronary artery without angina pectoris; N13.8 Other obstructive and reflux uropathy; N40.1 Benign prostatic hyperplasia with lower urinary tract symptoms
CPT/HCPCS: 36415; 80053; 82043; 82570; 83036; 84153; 84443; 85027

== ENCOUNTER → 2021-12-27 09:25 | Outpatient (CLI) | payer MEDICARE, SELFPAY ==
--- NOTE | 2022-01-09 17:14 | DIAB.INIT ---
Addendum entered by Yasmin Monahan 01/09/22 17:33: 12/27/21 Review of CGM data; highest elevations occur in the evening or afternoon 12-6p. Overall average 156 mg/dL BG. Infrequent lows but will address lows tx first and then address elevation. Hoping increase in activity will also help with elevations. Original Note: Initial Diabetes Education Assessment Name: Villa Moe Date: 12/27/21 Time: 047-3714w Dx: T2DM Provider: Aida Waller presents today with , Elise. States he is mostly concerned with how digestion works with CHO. States overall he feels comfortable with nutrition. Endorses a Mediterranean inspired diet. States he does have lows at night. Last low was last week. Does confirm lows with a finger stick. Gets a CGM alarm at 80mg/dL if BG is trending down. Treats lows with 4g CHO tablet and follows-up with spoon of jelly. Feels sweaty and may stay in 55-60mg/dl range for 20 min. Not following Rule of 15 for lows. Endorses difficulty with sleeping due to thinking and stress. Has received rec from PCP for book [employer]. Plans to check this out. Reports working on sadness. Food journal: 5a coffee and ff half n half 6-7a; eggs, abbott or sausage, cheese, pickles, jalapeno, +/- pc of fruit 0-15g CHO oatmeal with nuts and raisins butter and half n half 45g CHO cheerios and banan with milk 75g CHO toast with butter x 2 30g CHO 11a: nuts or fruit or mini kind bar or popcorn or avocado with triscuit or keoto chocolate or small peppermint paddy 0-30g CHO 2-3p: 6oz pro, small potaot or 1.5c mased with veggies (20-45g CHO) chx with brown rice and veggie 45-90g CHO pasta with sausage and veggies 60g CHO 5-6p: same as 11a Most meals are low to moderate in carb. There are a few high carb meals. Anthropometrics: Ht: 67 Wt: 256# last wt Physical Activity: no program. H/o treadmill, wt lifting and fidel chi via [employer]. 5000 steps per day. Self-Monitoring Blood Glucose: Dexcom CGM. 7day average: 1% very high 25% high 73% in range <1% low 0% very low Diabetes Medications: Metformin 850mg TID Glargine 30u Humalog 20-30u 5x per day Pertinent Labs: 7.5% 10/2021 Past Medical History: (Last Updated 10/23/21 @ 09:11 by Madi Parra MD) Barretts esophagus BPH w urinary obs/LUTS Coronary artery disease Essential hypertension GERD (gastroesophageal reflux disease) GERD without esophagitis Heart attack (~09/2016) History of colon polyps Mixed hyperlipidemia Obese Primary osteoarthritis involving multiple joints Severe obesity (BMI >= 40) Type 2 diabetes mellitus Type 2 diabetes mellitus with other circulatory complications Venous insufficiency Intervention: This participant was very receptive. Provided appropriate educational handouts. Discussed the following topics: Completed intake assessment. Discussed barriers to care. Rule of 15 for lows Stress management and mental health techniques and plan General recs for carb intake for meals and snacks Role of physical activity and following provider guidelines for safety Created SMART goals for patient self-care and success. Goals: Document lows, food intake and insulin units when low Practice Rule of 15 for lows occupational health nurse apple juice for lows Matt therapist Fidel chi 2x per week Treadmill 3x per week Follow-up: MANOLO MACIEL follow-up in 4 weeks Yasmin Monahan RDN, [facility] Certified Diabetes Care and Labeling Strategist P: [phone] Thank you for this referral
== END ==
PROVIDERS: Family Provider Internal Medicine; PCP Internal Medicine; Referring Provider Internal Medicine; Visit Provider Internal Medicine
DX: E11.59 Type 2 diabetes mellitus with other circulatory complications (principal); Z71.3 Dietary counseling and surveillance
CPT/HCPCS: G0108

== ENCOUNTER → 2022-01-24 08:39 | Outpatient (CLI) | payer MEDICARE, SELFPAY ==
[2022-01-24 10:08] LABS: Hemoglobin A1C% w Est Avg Glu 7.4 % (4.0-6.0)
[2022-01-25 08:38] LABS: PSA Free % 18.1 % (.); PSA, Total 6.4 ng/mL (0.0-4.0)
== END ==
PROVIDERS: Family Provider Internal Medicine; PCP Internal Medicine; Referring Provider Internal Medicine; Visit Provider Internal Medicine
DX: E11.59 Type 2 diabetes mellitus with other circulatory complications (principal); N13.8 Other obstructive and reflux uropathy; N40.1 Benign prostatic hyperplasia with lower urinary tract symptoms
CPT/HCPCS: 36415; 83036; 84153; 84154

== ENCOUNTER → 2022-01-25 13:52 | Outpatient (CLI) | payer MEDICARE, SELFPAY ==
--- NOTE | 2022-02-08 13:39 | DIAB.MNTFU ---
Follow-up Diabetes Medical Nutrition Therapy Assessment Name: Villa Moe Date: 01/25/22 Time: 210-315p Dx: Type II Diabetes Sridhar presents today with , Elsie, for follow-up. States he has decreased food intake and has been a little more active around the house recently. Endorses weight loss since last visit. -16# over one month. Has had two lows since last visit. CGM indicates no lows in the last 2 weeks, though BG are higher than last visit. He attributes this potentially due to eating out more with family. Endorses one low since last visit of 60mg/dL. Follow-up RUle of 15 to bring up to 75 mg/dL but then did not have a paired snack/meal once BG >70 mg/dL. States these lows are more likely when he skips a meal. Has questions of carbs vs sugar Last visit he reported depression and interest in a therapist. He seems less interested in this today. States this is something he has managed for a long time. Would like to wait on this. Anthropometrics: Ht: 67 Wt: 240# reported 256# last wt Physical Activity: no program. H/o treadmill, wt lifting and fidel chi via [employer]. 5000 steps per day. Has not started treadmill. Still interested. Also considering restarting fidel chi. Self-Monitoring Blood Glucose: Dexcom CGM. Today; 14 day average: 187mg/dl 45% TIR 46% high 9% very high 0 lows Highs recently mostly 7-10am. Today before breakfast he reports 200s mg/dL. Though does seem other days FBG are 130-140 mg/dL. Last Visit: 7day average: 1% very high 25% high 73% in range <1% low 0% very low Diabetes Medications: Metformin 850mg TID Glargine 30u (increased to 60u) Humalog 20-30u 5x per day Pertinent Labs: 7.5% 10/2021 Past Medical History: (Last Updated 01/24/22 @ 08:24 by Madi Parra MD) Advanced directives, counseling/discussion Barretts esophagus BPH w urinary obs/LUTS Coronary artery disease Essential hypertension GERD (gastroesophageal reflux disease) GERD without esophagitis Heart attack (~09/2016) History of colon polyps Mixed hyperlipidemia Obese Primary osteoarthritis involving multiple joints Severe obesity (BMI >= 40) Type 2 diabetes mellitus Type 2 diabetes mellitus with other circulatory complications Venous insufficiency Nutrition Rx: Carbohydrates: Daily: Meal: Snack: Nutrition Diagnosis: Intervention: This participant was very receptive. Provided appropriate educational handouts. Discussed the following topics: Blood sugar review and trends. Impact of food intake on results. Carbohydrates as an umbrella term for starches, fiber, and sugar Net carb discussion Rule of 15 review with paired snack Physical activity plan and progress Created SMART goals for patient self-care and success. Goals: Document lows, food intake and insulin units when low- in progress Practice Rule of 15 for lows- 75% met supervisor fusing room apple juice for lows- met Call therapist- no tmet Fidel chi 2x per week- not met Treadmill 3x per week - not met Have a paired snack after Rule of 15 once BG >70mg/dL- new Try Fidel chi on and - new Try treadmill Mon, Wed, FRi- new Follow-up: MANOLO MACIEL follow-up recommended in 2-4 weeks. Sridhar would like to bring BG and log in two weeks for review and schedule prn. Yasmin Monahan RDN, [facility] Certified Diabetes Care and [employer] P: [phone] Thank you for this referral
== END ==
PROVIDERS: Family Provider Internal Medicine; PCP Internal Medicine; Referring Provider Internal Medicine; Visit Provider Internal Medicine
DX: E11.9 Type 2 diabetes mellitus without complications (principal); Z79.84 Long term (current) use of oral hypoglycemic drugs; Z79.4 Long term (current) use of insulin; Z71.3 Dietary counseling and surveillance
CPT/HCPCS: 97803

== ENCOUNTER → 2022-04-12 08:44 | Outpatient (CLI) | payer MEDICARE, SELFPAY ==
[2022-04-12 09:59] LABS: Alanine Aminotransferase 23 IU/L (<50); Albumin Globulin Ratio 1.5 (1.0-2.8); Alkaline Phosphatase 62 U/L (38-126); Aspartate Aminotransferase 22 IU/L (17-59); BUN Creatinine Ratio 15.4 (6-22); Bilirubin Total 0.8 mg/dL (0.2-1.3); Blood Urea Nitrogen 14 mg/dL (9-20); Calcium 8.9 mg/dL (8.4-10.2); Carbon Dioxide 27 mmol/L (22-32); Chloride 102 mmol/L (98-107); Cholesterol 125 mg/dL (140-199); Estimated Glomerular Filt Rate > 60 mL/min (>60); Globulin 2.7 g/dL (1.7-4.1); Glucose 150 mg/dL (80-110); HDL Cholesterol 39 mg/dL (40-60); HEMOLYSIS < 15 (0-50); LDL Cholesterol Calculated 72 mg/dL (<100); Magnesium 1.9 mg/dL (1.6-2.3); Potassium 4.6 mmol/L (3.4-5.1); Sodium 138 mmol/L (137-145); Total Protein 6.7 g/dL (6.3-8.2); Triglycerides 69 mg/dL (35-150)
== END ==
PROVIDERS: Family Provider Internal Medicine; PCP Internal Medicine; Referring Provider Physician Assistant Medical; Visit Provider Specialist
DX: I10 Essential (primary) hypertension (principal); E78.2 Mixed hyperlipidemia
CPT/HCPCS: 36415; 80053; 80061; 83735

== ENCOUNTER → 2022-04-27 09:24 | Outpatient (CLI) | payer MEDICARE, SELFPAY ==
[2022-04-27 12:05] LABS: Hemoglobin A1C% w Est Avg Glu 7.4 % (4.0-6.0)
[2022-04-27 14:45] LABS: Creatinine Urine Random 181.3 mg/dL
[2022-04-27 14:48] LABS: Microalbumi Creatinin Ratio Ur 12.1 ug/mg CR (<30); Microalbumin Urine Random 2.2 mg/dL (0-1.6)
== END ==
PROVIDERS: Family Provider Internal Medicine; PCP Internal Medicine; Referring Provider Internal Medicine; Visit Provider Internal Medicine
DX: E11.59 Type 2 diabetes mellitus with other circulatory complications (principal)
CPT/HCPCS: 36415; 82043; 82570; 83036

== ENCOUNTER → 2022-07-04 08:02 | Outpatient (CLI) | payer MEDICARE, SELFPAY ==
--- NOTE | 2022-07-04 | DI.MRI.S_ITS ---
PROCEDURE: MR PELIS WO/W CON INDICATIONS: Elevated prostate specific antigen [PSA] TECHNIQUE: Coronal HASTE, axial T1 FSE with fat saturation, 3-plane nonbreath-hold T2 FSE. After the administration of contrast, dynamic axial, delayed axial and coronal VIBE or 2-D FLASH with fat saturation through the pelvis. Optional diffusion weighted imaging and ADC may be performed. COMPARISON: None. FINDINGS: Image quality: Diffusion weighted and dynamic contrast enhanced images are diagnostic. Prostate: Gland size is 6.0 x 5.1 x 6.3 cm; ellipsoid gland volume is 100 mL. Lesion 1 Size: 1.1 x 0.7 cm Location: Right posterior transition zone, mid gland (series 6, image 12). T2W Signal: Partially calcified nodule. DWI: Markedly hyperintense ADC: Markedly hypointense Enhancement: Yes Extracapsular extension: No PI-RADS: 3 Genitourinary system: Bladder wall thickness is normal. Distal ureters are non distended. Bowel and peritoneum: No pathologic free pelvic fluid. Inferior colon and small bowel loops are normal in caliber. Nodes and vessels: No pelvic or inguinal adenopathy by size criteria or morphology. Iliac vessels are normal in caliber. Soft tissues: No inguinal hernias. Bones: Marrow demonstrates normal overall signal, without lesions to suggest metastases. IMPRESSION: PI-RADS 3 lesion in the posterior right TZ. No evidence of extracapsular extension. No aggressive osseous abnormality. No abnormal pelvic lymph nodes. Dictated by: Severo Lopez M.D. on 07/04/2022 at 10:36 Approved by: Severo Lopez M.D. on 07/04/2022 at 10:47
== END ==
PROVIDERS: Family Provider Internal Medicine; PCP Internal Medicine; Referring Provider Urology; Visit Provider Urology
DX: N42.9 Disorder of prostate, unspecified (principal); R97.20 Elevated prostate specific antigen [PSA]
CPT/HCPCS: 72197; A9579

== ENCOUNTER → 2022-09-05 07:08 | Outpatient (CLI) | payer MEDICARE, SELFPAY ==
[2022-09-07 09:34] LABS: PSA Free % 17.7 % (.); PSA, Total 5.3 ng/mL (0.0-4.0)
== END ==
PROVIDERS: Family Provider Internal Medicine; PCP Internal Medicine; Referring Provider Urology; Visit Provider Urology
DX: R97.20 Elevated prostate specific antigen [PSA] (principal)
CPT/HCPCS: 36415; 84153; 84154

== ENCOUNTER → 2022-10-29 10:10 | Outpatient (CLI) | payer MEDICARE, SELFPAY ==
[2022-10-29 12:47] LABS: BUN Creatinine Ratio 19.5 (6-22); Blood Urea Nitrogen 16 mg/dL (9-20); Carbon Dioxide 26 mmol/L (22-32); Chloride 101 mmol/L (98-107); Estimated Glomerular Filt Rate > 60 mL/min (>60); Glucose 151 mg/dL (80-110); HEMOLYSIS < 15 (0-50); Potassium 4.4 mmol/L (3.4-5.1); Sodium 136 mmol/L (137-145)
[2022-10-30 05:12] LABS: x Labcorp Estim. Avg Glu (eAG) 140 mg/dL (.); x Labcorp Hemoglobin A1c 6.5 % (4.8-5.6)
[2022-10-31 11:16] LABS: PSA Free % 16.8 % (.); PSA, Total 7.5 ng/mL (0.0-4.0)
== END ==
PROVIDERS: Family Provider Internal Medicine; PCP Internal Medicine; Referring Provider Urology; Visit Provider Urology
DX: E11.59 Type 2 diabetes mellitus with other circulatory complications (principal); R97.20 Elevated prostate specific antigen [PSA]
CPT/HCPCS: 36415; 80048; 83036; 84153; 84154

== ENCOUNTER → 2022-12-14 08:20 | Outpatient (CLI) | payer MEDICARE, SELFPAY ==
[2022-12-14 09:37] LABS: Alanine Aminotransferase 23 IU/L (<50); Albumin 4.3 g/dL (3.5-5.0); Albumin Globulin Ratio 1.4 (1.0-2.8); Alkaline Phosphatase 55 U/L (38-126); Aspartate Aminotransferase 23 IU/L (17-59); BUN Creatinine Ratio 18.3 (6-22); Bilirubin Total 1.2 mg/dL (0.2-1.3); Blood Urea Nitrogen 15 mg/dL (9-20); Calcium 8.8 mg/dL (8.4-10.2); Carbon Dioxide 25 mmol/L (22-32); Chloride 103 mmol/L (98-107); Estimated Glomerular Filt Rate > 60 mL/min (>60); Glucose 159 mg/dL (80-110); HEMOLYSIS < 15 (0-50); Magnesium 1.9 mg/dL (1.6-2.3); Potassium 4.5 mmol/L (3.4-5.1); Sodium 137 mmol/L (137-145); Total Protein 7.3 g/dL (6.3-8.2)
[2022-12-16 07:11] LABS: Cholesterol, Total 128 mg/dL (100-199); HDL-Cholesterol 46 mg/dL (>39); HDL-Particle (Total) 30.5 umol/L (>=30.5); LDL Particle 1090 nmol/L (<1000); LDL Size 20.5 nm (>20.5); LDL-Cholsterol 65 mg/dL (0-99); LP-IR Score 61 (<=45); Small LDL- Particle 546 nmol/L (<=527); Triglycerides 87 mg/dL (0-149)
== END ==
PROVIDERS: Family Provider Internal Medicine; PCP Internal Medicine; Referring Provider Specialist; Visit Provider Specialist
DX: I10 Essential (primary) hypertension (principal); E78.2 Mixed hyperlipidemia
CPT/HCPCS: 36415; 80053; 80061; 83704; 83735

== ENCOUNTER → 2023-01-21 08:05 | Outpatient (CLI) | payer MEDICARE, SELFPAY ==
[2023-01-23 09:09] LABS: PSA Free % 17.3 % (.); PSA, Total 7.3 ng/mL (0.0-4.0)
== END ==
PROVIDERS: Family Provider Internal Medicine; PCP Internal Medicine; Referring Provider Urology; Visit Provider Urology
DX: N13.8 Other obstructive and reflux uropathy (principal); N40.1 Benign prostatic hyperplasia with lower urinary tract symptoms; R97.20 Elevated prostate specific antigen [PSA]
CPT/HCPCS: 36415; 84153; 84154

== ENCOUNTER → 2023-04-17 07:06 | Outpatient (CLI) | payer MEDICARE, SELFPAY ==
[2023-04-19 09:20] LABS: PSA Free % 20.2 % (.); PSA, Total 6.2 ng/mL (0.0-4.0)
== END ==
PROVIDERS: Family Provider Internal Medicine; PCP Internal Medicine; Referring Provider Urology; Visit Provider Urology
DX: R97.20 Elevated prostate specific antigen [PSA] (principal)
CPT/HCPCS: 36415; 84153; 84154

== ENCOUNTER → 2023-05-08 08:43 | Outpatient (CLI) | payer MEDICARE, SELFPAY ==
[2023-05-08 09:38] LABS: Creatinine Urine Random 97.6 mg/dL
[2023-05-08 09:42] LABS: Microalbumi Creatinin Ratio Ur 14.3 ug/mg CR (<30); Microalbumin Urine Random 1.4 mg/dL (0-1.6)
[2023-05-08 09:50] LABS: Hemoglobin A1C% w Est Avg Glu 8.2 % (4.0-6.0)
[2023-05-08 10:09] LABS: Aspartate Aminotransferase 26 IU/L (17-59); BUN Creatinine Ratio 15.4 (6-22); Blood Urea Nitrogen 12 mg/dL (9-20); Calcium 9.4 mg/dL (8.4-10.2); Carbon Dioxide 27 mmol/L (22-32); Chloride 100 mmol/L (98-107); Estimated Glomerular Filt Rate > 60 mL/min (>60); Glucose 213 mg/dL (80-110); HEMOLYSIS < 15 (0-50); Potassium 4.7 mmol/L (3.4-5.1); Sodium 134 mmol/L (137-145)
== END ==
PROVIDERS: Family Provider Internal Medicine; PCP Internal Medicine; Referring Provider Internal Medicine; Visit Provider Internal Medicine
DX: E11.59 Type 2 diabetes mellitus with other circulatory complications (principal); E78.2 Mixed hyperlipidemia
CPT/HCPCS: 36415; 80048; 82043; 82570; 83036; 84450

== ENCOUNTER 2023-07-08 09:41 | Day surgery (SDC) | payer MEDICARE, SELFPAY ==
--- NOTE | 2023-07-08 | PATH_ITS ---
[facility] Accession Number: [id number] No. of containers..04 Tissue . 01 Material submitted: . PART A: gastrointestinal site - ANTRAL NODULE PART B: esophagus, E-G Junction - GE JUNCTION PART C: gastrointestinal site - ANTRAL POLYP PART D: colon - TRANSVERSE POLYP . 01 Diagnosis: A. GASTRIC ANTRAL NODULE, BIOPSY: Gastric antral mucosa with reactive foveolar hyperplasia. Negative for Helicobacter organisms by immunohistochemistry. Negative for intestinal metaplasia. Negative for dysplasia or malignancy. . B. GASTROESOPHAGEAL JUNCTION, BIOPSY: Squamocolumnar junctional mucosa with specialized intestinal metaplasia; please see comment. Negative for dysplasia or malignancy. . C. GASTRIC ANTRAL POLYP, BIOPSY: Gastric hyperplastic polyp. Negative for Helicobacter organisms by immunohistochemistry. Negative for intestinal metaplasia. Negative for dysplasia or malignancy. . D. TRANSVERSE COLON POLYP: Hyperplastic polyp. [facility] 07/11/2023 1310 Local . 01 Comment: B. The findings in the gastroesophageal junction biopsy would be consistent with Alston's esophagus in the appropriate endoscopic setting. . 01 Electronically signed: . Phi Caballero MD, PhD, Pathologist NPI- [id number] . 01 Gross description: . Part A: ANTRAL NODULE: Received in formalin is 1 fragment(s) of [place], soft tissue measuring 0.3 x 0.2 x 0.2 cm submitted entirely in 1 cassette(s) Part B: GE JUNCTION: Received in formalin are 3 fragment(s) of [place], soft tissue measuring 0.1 x 0.1 x 0.1 cm to 0.3 x 0.2 x 0.2 cm submitted entirely in 1 cassette(s) Part C: ANTRAL POLYP: Received in formalin is 1 fragment(s) of [place], soft tissue measuring 0.3 x 0.3 x 0.2 cm submitted entirely in 1 cassette(s) Part D: TRANSVERSE POLYP: Received in formalin is 1 fragment(s) of [place], soft tissue measuring 0.3 x 0.2 x 0.2 cm submitted entirely in 1 cassette(s) /[facility] 07/09/2023 2207 Local . 01 Microscopic: . A. An immunohistochemical stain was performed to evaluate for Helicobacter organisms and is negative. The control stain showed appropriate reactivity. . C. An immunohistochemical stain was performed to evaluate for Helicobacter organisms and is negative. The control stain showed appropriate reactivity. . * This test was developed and its performance characteristics determined by [facility]. It has not been cleared or approved by the U.S. Food and Drug Administration. The FDA has determined that such clearance or approval is not necessary. This test is used for clinical purposes. It should not be regarded as investigational or for research. . 01 Pathologist provided ICD-10: K31.7, K22.70, K63.5 . 01 CPT . 442669, 866845, 277221, 947324, Z85304 Specimen Comment: A courtesy copy of this report has been sent to [phone] Performed at: 01 [facility] [address] [place] [address], [place], [place] [id number] MD Rome Escamilla MD Phone: [phone]
[2023-07-08 10:26] VITALS: BP 166/68; PULSE 59; RESP 16; TEMP 36.6; O2SAT 97
--- NOTE | 2023-07-08 10:37 | PM.HP.1 ---
History of Present Illness History of Present Illness Date Patient Seen: 07/08/23 Time Patient Seen: 10:37 Chief complaint: EGD/Colonoscopy Narrative: 78-year-old male here for EGD and colonoscopy. I reviewed my recent office note. No significant changes. History of Barretts. History of colon polyps. [facility] Medical History Nocturia Family history of prostate cancer in father Testicular atrophy History of kidney stones Rising PSA level Kidney stones Depression Chest pain Skin cancer Arthritis Elevated PSA Venous insufficiency BPH w urinary obs/LUTS Severe obesity (BMI >= 40) Primary osteoarthritis involving multiple joints GERD without esophagitis Mixed hyperlipidemia Essential hypertension Type 2 diabetes mellitus with other circulatory complications Obese GERD (gastroesophageal reflux disease) History of colon polyps Barretts esophagus Coronary artery disease Surgical History H/O vasectomy S/P drug eluting coronary stent placement H/O basal cell carcinoma excision (~2005) H/O eye surgery History of esophagogastroduodenoscopy (EGD) Family History Father Cancer CAD in [place] artery Mother Diabetes mellitus Cancer Grandmother Diabetes mellitus Social History marital status: household members: spouse Smoking Status: Former smoker Meds Home Medications and Allergies Home Medications Medication Instructions Recorded Confirmed Type aspirin 81 mg chewable tablet 81 mg PO DAILY 07/29/18 07/08/23 History cholecalciferol (vitamin D3) 125 5,000 unit PO DAILY 07/29/18 07/08/23 History mcg (5,000 unit) tablet (Vitamin D3) nitroglycerin 0.4 mg sublingual 0.4 mg sublingual PRN PRN Chest 07/29/18 05/08/23 History tablet Pain Saccharomyces boulardii 10 billion 30,000 mmu cells PO DAILY 01/18/22 07/08/23 History cell capsule coenzyme Q10 100 mg capsule 100 mg PO DAILY 01/18/22 07/08/23 History cyanocobalamin (vitamin B-12) 10,000 mcg PO DAILY 01/18/22 07/08/23 History 5,000 mcg capsule pen needle, diabetic 31 gauge x #1,200 ea 04/23/22 05/08/23 History 5/16 (BD Ultra-Fine Short Pen Needle) magnesium oxide 400 mg PO BID 10/24/22 07/08/23 History BD Ultra-Fine Short [place] #400 ea 06/03/23 Rx amlodipine 5 mg tablet 5 mg PO DAILY #90 tabs 06/03/23 07/08/23 Rx atorvastatin 80 mg tablet 80 mg PO DAILY #90 tabs 06/03/23 07/08/23 Rx carvedilol 12.5 mg tablet 12.5 mg PO BID #180 tabs 06/03/23 07/08/23 Rx empagliflozin 10 mg tablet 10 mg PO DAILY #90 tabs 06/03/23 07/08/23 Rx insulin glargine 100 unit/mL (3 30 unit (0.3 mL) SUBCUT BID #54 mL 06/03/23 07/08/23 Rx mL) subcutaneous pen (Lantus Solostar U-100 Insulin) insulin lispro 100 unit/mL 20 - 30 unit (0.2 - 0.3 mL) SUBCUT 06/03/23 07/08/23 Rx subcutaneous pen (Humalog KwikPen 5XD #135 mL (U-100) Insulin) losartan 100 mg tablet 100 mg PO DAILY #90 tabs 06/03/23 07/08/23 Rx metformin 850 mg tablet 850 mg PO TID #270 tabs 06/03/23 07/08/23 Rx omeprazole 20 mg capsule,delayed 20 mg PO DAILY #90 caps 06/03/23 07/08/23 Rx release tamsulosin 0.4 mg capsule 0.8 mg (2 x 0.4 mg) PO DAILY #60 06/03/23 07/08/23 Rx caps Allergies Allergy/AdvReac Type Severity Reaction Status Date / Time No Known Drug Allergies Allergy Verified 07/08/23 10:18 Review of Systems Review of Systems ROS: Yes All systems reviewed with the patient and are negative except as otherwise documented Exam Const General: cooperative HENMT Head: normal to inspection Eyes General: appearance normal, both eyes and all related structures Neck Neck: normal visual inspection Chest Chest: normal inspection of the chest Resp Effort & Inspection: normal respiratory effort Cardio Rate: regular rate GI Inspection: normal to inspection Skin General: no rashes or lesions noted Neuro General: patient alert and patient awake Extrem General: normal to inspection and no pedal edema Psych Appearance: grossly normal Assessment & Plan Assessment & Plan narrative: 78-year-old male with nondysplastic Alston's and a history of adenomatous colon polyps. EGD and colonoscopy are pursued today.
--- NOTE | 2023-07-08 10:38 | PM.PREOP ---
Pre-operative Note Interval Note History & Physical reviewed/Exam performed by Physician: Yes Changes to H&P: No ASA Class (for procedural sedation): III
[2023-07-08] MEDS: LACTATED RINGERS 1,000 ML 42 ML IV (10:44)
[2023-07-08 12:15] VITALS: BP 132/57; PULSE 69; RESP 18; TEMP 36.4; O2SAT 94
--- NOTE | 2023-07-08 12:16 | P.OP.EGD&C_ITS ---
Operative Date/Time/Diagnoses Date of procedure: 07/08/23 Time of procedure: 12:16 Pre-op diagnosis: History of Barretts and colon polyps. Post-op diagnosis: same Procedure & Clinicians Study performed: EGD with biopsies and a colonoscopy with cold snare polypectomy Same procedure as scheduled: Yes Indications: History of Barretts and colon polyps. Surgeon: Leonardo Boothe Procedure Notes SCOAP/Timeout: Done Procedure in detail: After the risks and benefits were explained, written and verbal informed consent was obtained. The patient was brought into the procedure room and placed into the left lateral decubitus position. Please see anesthesia note for sedation details. The scope was introduced into the mouth through the bite block and advanced under direct visualization to the 2nd portion of the duodenum. The scope was slowly withdrawn carefully examining the mucosa for any defects or lesions. Retroflexed views were accomplished in the stomach. The stomach was decompressed, the scope was then removed from the patient who tolerated the procedure well. The patient was then turned around. A digital rectal examination was accomplished. The scope was introduced into the rectum and advanced to the ce cum as identified by the appendiceal orifice and ileocecal valve. The scope was slowly withdrawn to carefully examine the mucosa for any defects or lesions. Multiple direct views were made through the dentate line for exclusion of pathology. The colon was decompressed. The scope was removed from the patient who tolerated the procedure well. Adult colonoscope Bowel prep adequate Scope withdrawal time: 7 minutes Sedation minutes: 34 Complications: none Impression: 1. Duodenal: This was visually unremarkable from the bulb through to the 2nd portion. 2. Stomach: There was a 7-8 mm submucosal nodule in the antral region. This did not exhibit a classic pillow sign. I therefore biopsied this for histopathologic analysis. There was a 2nd smaller 5 mm polyp in the more proximal antrum that was sampled with cold forceps. No additional gastric pathology was appreciated throughout including retroflexed views of the LES. 3. Esophagus: The squamocolumnar junction correlated with the top of the gastric folds for the most part. However there was extension of the salmon- colored mucosa ever so slightly and subtly into the distal esophagus consistent with a prior history of Barretts. There were a couple of salmon-colored islands in this region as well. I would rate this as a C 0 M 1 Barretts. The salmon- colored mucosa was sampled x3 with cold forceps. The GE junction was at approximately 37 cm from the incisors. There was a very subtle sliding hiatal hernia. There was no evidence of any active ulceration, erosive change, stricturing, or nodularity at this level. The remainder of the esophagus was unremarkable with the exception of a benign-appearing inlet patch. 4. Colon: Patient had fairly redundant lengthy colon. Grade 2 internal hemorrhoids were noted. There was a 5 mm polyp in the transverse colon removed with cold snare. No significant additional pathology was appreciated throughout. Endoscopic diagnosis 1. Subtle sliding hiatal hernia 2. C 0 M 1 Barretts 3. Small gastric polyp 4. Antral submucosal nodule 5. Colon polyp 6. Grade 2 hemorrhoids Post-procedure Plan for aftercare: 1. Await histology. 2. Continue anti-reflux therapy. 3. Repeat EGD for Barretts surveillance in 3 years. However an earlier evaluation with endoscopic ultrasound may be appropriate contingent on histopathology results from the antrum. 4. Consider repeat colonoscopy in 7 years. Disposition: PACU
[2023-07-08 12:20] VITALS: BP 138/59; PULSE 71; RESP 16; O2SAT 95
[2023-07-08 12:25] VITALS: BP 134/60; PULSE 68; RESP 16; O2SAT 97
[2023-07-08 12:30] VITALS: BP 132/61; PULSE 68; RESP 16; O2SAT 98
== END 2023-07-08 12:41 | disposition home or self-care (01) ==
PROVIDERS: Family Provider Internal Medicine; PCP Internal Medicine; Referring Provider Internal Medicine Gastroenterology; Visit Provider Internal Medicine Gastroenterology
PROC: 0DJ08ZZ Inspection of Upper Intestinal Tract, Via Natural or Artificial Opening Endoscopic (ICD-10-PCS; CPT 43235; principal; 2023-07-08 11:00)
PROC: 0DJD8ZZ Inspection of Lower Intestinal Tract, Via Natural or Artificial Opening Endoscopic (ICD-10-PCS; CPT 45378; 2023-07-08 11:00)
DX: Z12.11 Encounter for screening for malignant neoplasm of colon (principal); Z86.010 Personal history of colon polyps; Z87.19 Personal history of other diseases of the digestive system; K22.70 Barrett's esophagus without dysplasia; K44.9 Diaphragmatic hernia without obstruction or gangrene; K64.1 Second degree hemorrhoids; K31.7 Polyp of stomach and duodenum
CPT/HCPCS: 45385; 43239; J2704

== ENCOUNTER → 2023-07-22 11:46 | Outpatient (CLI) | payer MEDICARE, SELFPAY ==
[2023-07-26 13:36] LABS: PSA Free % 18.2 % (.); PSA, Total 9.1 ng/mL (0.0-4.0)
== END ==
PROVIDERS: Family Provider Internal Medicine; PCP Internal Medicine; Referring Provider Urology; Visit Provider Urology
DX: R97.20 Elevated prostate specific antigen [PSA] (principal)
CPT/HCPCS: 36415; 84153; 84154

== ENCOUNTER → 2023-07-31 08:23 | Outpatient (CLI) | payer MEDICARE, SELFPAY ==
[2023-07-31 10:15] LABS: Alanine Aminotransferase 24 IU/L (<50); Albumin 4.1 g/dL (3.5-5.0); Albumin Globulin Ratio 1.4 (1.0-2.8); Alkaline Phosphatase 55 U/L (38-126); Aspartate Aminotransferase 25 IU/L (17-59); BUN Creatinine Ratio 17.9 (6-22); Bilirubin Total 0.9 mg/dL (0.2-1.3); Blood Urea Nitrogen 14 mg/dL (9-20); Calcium 9.3 mg/dL (8.4-10.2); Carbon Dioxide 24 mmol/L (22-32); Chloride 105 mmol/L (98-107); Estimated Glomerular Filt Rate > 60 mL/min (>60); Globulin 2.9 g/dL (1.7-4.1); Glucose 144 mg/dL (80-110); HEMOLYSIS < 15 (0-50); Magnesium 1.9 mg/dL (1.6-2.3); Potassium 4.7 mmol/L (3.4-5.1); Sodium 136 mmol/L (137-145)
[2023-08-02 12:54] LABS: Cholesterol, Total 113 mg/dL (100-199); HDL-Cholesterol 42 mg/dL (>39); HDL-Particle (Total) 32.7 umol/L (>=30.5); LDL Particle 658 nmol/L (<1000); LDL Size 20.4 nm (>20.5); LDL-Cholsterol 52 mg/dL (0-99); LP-IR Score 42 (<=45); Small LDL- Particle 342 nmol/L (<=527); Triglycerides 102 mg/dL (0-149)
== END ==
PROVIDERS: Family Provider Internal Medicine; PCP Internal Medicine; Referring Provider Specialist; Visit Provider Specialist
DX: N40.1 Benign prostatic hyperplasia with lower urinary tract symptoms (principal); N13.8 Other obstructive and reflux uropathy; I10 Essential (primary) hypertension; E78.2 Mixed hyperlipidemia; R97.20 Elevated prostate specific antigen [PSA]; N50.0 Atrophy of testis; R35.1 Nocturia; Z87.442 Personal history of urinary calculi; Z80.42 Family history of malignant neoplasm of prostate
CPT/HCPCS: 36415; 51798; 80053; 80061; 81002; 83704; 83735; 99214

== ENCOUNTER → 2023-10-16 07:56 | Outpatient (CLI) | payer MEDICARE, SELFPAY ==
[2023-10-17 14:13] LABS: PSA Free % 19.6 % (.); PSA, Total 6.9 ng/mL (0.0-4.0)
== END ==
PROVIDERS: Family Provider Internal Medicine; PCP Internal Medicine; Referring Provider Urology; Visit Provider Urology
DX: R97.20 Elevated prostate specific antigen [PSA] (principal)
CPT/HCPCS: 36415; 84153; 84154

== ENCOUNTER → 2023-11-07 09:05 | Outpatient (CLI) | payer MEDICARE, SELFPAY ==
[2023-11-07 10:04] LABS: Hemoglobin A1C% w Est Avg Glu 7.8 % (4.0-6.0)
[2023-11-07 10:07] LABS: BUN Creatinine Ratio 13.7 (6-22); Blood Urea Nitrogen 10 mg/dL (9-20); Calcium 9.2 mg/dL (8.4-10.2); Carbon Dioxide 26 mmol/L (22-32); Chloride 105 mmol/L (98-107); Estimated Glomerular Filt Rate > 60 mL/min (>60); Glucose 181 mg/dL (80-110); HEMOLYSIS < 15 (0-50); Potassium 4.9 mmol/L (3.4-5.1); Sodium 136 mmol/L (137-145)
== END ==
PROVIDERS: Family Provider Internal Medicine; PCP Internal Medicine; Referring Provider Internal Medicine; Visit Provider Internal Medicine
DX: E11.59 Type 2 diabetes mellitus with other circulatory complications (principal); I10 Essential (primary) hypertension
CPT/HCPCS: 36415; 80048; 83036

== ENCOUNTER 2023-11-15 11:28 | Emergency (ER) | payer MEDICARE, SELFPAY ==
[2023-11-15 11:29] VITALS: BP 154/75; PULSE 83; RESP 14; TEMP 36.8; O2SAT 97; BMI 36.0
[2023-11-15 11:35] VITALS: PULSE 83; O2SAT 97
[2023-11-15 11:36] VITALS: BP 154/75; PULSE 83; O2SAT 93
--- NOTE | 2023-11-15 11:42 | ED_ITS ---
HPI - Extremity Injury (Lower) <Arnie Cade PA-C - Last Filed: 11/15/23 13:12> General Chief Complaint: Extremity Injury, Lower Stated Complaint: L hip pain Time Seen by Provider: 11/15/23 11:38 Source: patient Mode of arrival: Wheelchair History of Present Illness HPI Narrative: This is a 78-year-old male presents to the emergency department due to acute on chronic left hip pain. States that he has had left hip pain for the last 6 months and has been seeing physical therapy for the last 4. He states that this has been helping somewhat with the pain but states that last night it ?locked up?. Denies any trauma to the left hip. Denies any swelling of the lower extremities, numbness, saddle paresthesias, or any other concerning signs or symptoms. Related Data Home Medications Medication Instructions Recorded Confirmed aspirin 81 mg chewable tablet 81 mg PO DAILY 07/29/18 11/07/23 cholecalciferol (vitamin D3) 125 5,000 unit PO DAILY 07/29/18 11/07/23 mcg (5,000 unit) tablet (Vitamin D3) nitroglycerin 0.4 mg sublingual 0.4 mg sublingual PRN PRN Chest 07/29/18 11/07/23 tablet Pain Saccharomyces boulardii 10 billion 30,000 mmu cells PO DAILY 01/18/22 11/07/23 cell capsule coenzyme Q10 100 mg capsule 100 mg PO DAILY 01/18/22 11/07/23 cyanocobalamin (vitamin B-12) 10,000 mcg PO DAILY 01/18/22 11/07/23 5,000 mcg capsule pen needle, diabetic 31 gauge x #1,200 ea 04/23/22 11/07/23 5/16 (BD Ultra-Fine Short Pen Needle) magnesium oxide 400 mg PO BID 10/24/22 11/07/23 acetaminophen 500 mg capsule 500 mg PO Q6H PRN 07/31/23 11/07/23 cannabidiol 100 mg/mL oral solution 2,000 mg PO ONCE 07/31/23 11/07/23 Previous Rx's Medication Instructions Recorded BD Ultra-Fine Short [place] #400 ea 06/03/23 amlodipine 5 mg tablet 5 mg PO DAILY #90 tabs 06/03/23 atorvastatin 80 mg tablet 80 mg PO DAILY #90 tabs 06/03/23 carvedilol 12.5 mg tablet 12.5 mg PO BID #180 tabs 06/03/23 insulin glargine 100 unit/mL (3 30 unit (0.3 mL) SUBCUT BID #54 mL 06/03/23 mL) subcutaneous pen (Lantus Solostar U-100 Insulin) insulin lispro 100 unit/mL 20 - 30 unit (0.2 - 0.3 mL) SUBCUT 06/03/23 subcutaneous pen (Humalog KwikPen 5XD #135 mL (U-100) Insulin) losartan 100 mg tablet 100 mg PO DAILY #90 tabs 06/03/23 metformin 850 mg tablet 850 mg PO TID #270 tabs 06/03/23 omeprazole 20 mg capsule,delayed 20 mg PO DAILY #90 caps 06/03/23 release tamsulosin 0.4 mg capsule 0.8 mg (2 x 0.4 mg) PO DAILY #60 06/03/23 caps cyclobenzaprine 10 mg tablet 10 mg PO TID PRN muscle spasm #30 11/15/23 tabs Allergies Allergy/AdvReac Type Severity Reaction Status Date / Time No Known Drug Allergies Allergy Verified 11/15/23 11:38 Review of Systems <Arnie Cade PA-C - Last Filed: 11/15/23 13:12> Review of Systems Narrative: GENERAL: Denies chills, fatigue, malaise, fever, sweats. HEENT: Denies sinus pain, ear pain, sore throat, difficulty swallowing, dizziness. RESPIRATORY: Denies dyspnea, cough, wheezing, hemoptysis, sputum. CARDIOVASCULAR: Denies chest pain, palpitations, orthopnea, edema, GASTROINTESTINAL: Denies nausea, vomiting, abdominal pain, diarrhea, constipation, melena. : Denies dysuria, frequency, incontinence, hematuria, urinary retention. MUSCULOSKELETAL: Reports left hip pain, otherwise denies weakness, joint pain, or bony pain SKIN: Denies rash, skin lesions, or other NEUROLOGIC: Denies weakness, headache, numbness, change in speech, confusion, seizures, incoordination. PSYCHIATRIC: No concerning psychosocial issues. 12 point review of systems is negative except for those stated above Patient History <Arnie Cade PA-C - Last Filed: 11/15/23 13:12> Medical History Tendinitis of left rotator cuff Nocturia Family history of prostate cancer in father Testicular atrophy History of kidney stones Rising PSA level Kidney stones Depression Chest pain Skin cancer Arthritis Elevated PSA Venous insufficiency BPH w urinary obs/LUTS Severe obesity (BMI >= 40) Primary osteoarthritis involving multiple joints GERD without esophagitis Mixed hyperlipidemia Essential hypertension Type 2 diabetes mellitus with other circulatory complications Obese GERD (gastroesophageal reflux disease) History of colon polyps Barretts esophagus Coronary artery disease Surgical History H/O vasectomy S/P drug eluting coronary stent placement H/O basal cell carcinoma excision (~2005) H/O eye surgery History of esophagogastroduodenoscopy (EGD) Family History Father Cancer CAD in [place] artery Mother Diabetes mellitus Cancer Grandmother Diabetes mellitus Social History marital status: household members: spouse Smoking Status: Former smoker Smoking Status: Former smoker alcohol intake frequency: holidays/special occasions only Substance Use Type: does not use Exam <Arnie Cade PA-C - Last Filed: 11/15/23 13:12> Narrative Exam Narrative: GENERAL: Well-developed patient, in mild distress. HEAD: Atraumatic. Normocephalic. EYES: Pupils equal round and reactive. Extraocular motions intact. No scleral icterus. No injection or drainage. ENT: Nose without bleeding, purulent drainage. Throat without erythema, tonsillar hypertrophy or exudate. Airway patent. NECK: Trachea midline. Non tender EXTREMITIES: Mild tenderness to palpation with deep palpation to the left hip area NEURO: AOx3. SKIN: No rash or erythema of visible areas Initial Vital Signs Initial Vital Signs: Vital Signs Temperature 98.3 F 11/15/23 11:29 Pulse Rate 83 11/15/23 11:29 Respiratory Rate 14 11/15/23 11:29 Blood Pressure 154/75 H 11/15/23 11:29 Pulse Oximetry 97 11/15/23 11:29 Oxygen Delivery Method Room Air 11/15/23 11:29 <Lisa Cerrato DO - Last Filed: 11/16/23 10:15> Initial Vital Signs Initial Vital Signs: Vital Signs Temperature 98.3 F 11/15/23 11:29 Pulse Rate 83 11/15/23 11:29 Respiratory Rate 14 11/15/23 11:29 Blood Pressure 154/75 H 11/15/23 11:29 Pulse Oximetry 97 11/15/23 11:29 Oxygen Delivery Method Room Air 11/15/23 11:29 Course <Arnie Cade PA-C - Last Filed: 11/15/23 13:12> Orders Ordered: Discontinued Medications Ketorolac Tromethamine (Ketorolac 30 Mg/Ml Vial) 15 mg IM NOW ONE Stop: 11/15/23 13:13 Last Admin: 11/15/23 13:20 Dose: 15 mg Documented By: DAMI Vital Signs Vital signs: Vital Signs - 8 hr 11/15/23 11:29 11/15/23 11:35 11/15/23 11:36 Temperature 98.3 F Pulse Rate 83 83 83 Respiratory Rate 14 Blood Pressure 154/75 H Pulse Oximetry 97 97 93 Oxygen Delivery Method Room Air 11/15/23 11:36 Temperature Pulse Rate Respiratory Rate Blood Pressure 154/75 H Pulse Oximetry Oxygen Delivery Method <Lisa Cerrato DO - Last Filed: 11/16/23 10:15> Orders Ordered: Discontinued Medications Ketorolac Tromethamine (Ketorolac 30 Mg/Ml Vial) 15 mg IM NOW ONE Stop: 11/15/23 13:13 Last Admin: 11/15/23 13:20 Dose: 15 mg Documented By: DAMI Vital Signs Vital signs: Vital Signs - 8 hr 11/15/23 11:29 11/15/23 11:35 11/15/23 11:36 Temperature 98.3 F Pulse Rate 83 83 83 Respiratory Rate 14 Blood Pressure 154/75 H Pulse Oximetry 97 97 93 Oxygen Delivery Method Room Air 11/15/23 11:36 Temperature Pulse Rate Respiratory Rate Blood Pressure 154/75 H Pulse Oximetry Oxygen Delivery Method MDM - Extremity Injury (Lower) <Arnie Cade PA-C - Last Filed: 11/15/23 13:12> Imaging Data Extremity x-ray #1: Radiologist's Impression: [address] [address] XRay Report Signed Patient: Villa Moe MR#: [id number] : 1945 Acct:[id number] Age/Sex: 78 / M Date of Service: 11/15/23 Loc: ED Accession Number: [id number] Procedure: XR hip w pel if done LT 2V Ordering Provider: Arnie Cade P.A-C PROCEDURE: XR HIP W PEL IF DONE LT 2V INDICATIONS: Acute on chronic L hip pain TECHNIQUE: AP pelvis with lateral view(s) of the left hip(s). COMPARISON: None. FINDINGS: Bones: No fractures or dislocations. Pelvic ring appears intact. No suspicious bony lesions. Mild bilateral hip degenerative change. Soft tissues: The visualized bowel gas pattern is normal. No suspicious soft tissue calcifications. IMPRESSION: No acute bony abnormality. Mild bilateral hip degenerative change. Dictated by: Felice Harrell M.D. on 11/15/2023 at 13:00 Approved by: Felice Harrell M.D. on 11/15/2023 at 13:01 [facility] Narrative Medical decision making narrative: ED course: This is a 78-year-old male presents emergency department due to acute on chronic left hip pain. No significant trauma to of the hip to cause the pain. Suspect muscular in nature. Left hip x-ray ordered which was n egative for any acute findings. We will treat with Toradol as well as muscle relaxants and patient we will continue to follow up with his physical therapist as he asthma. No concerning red flag symptoms such as saddle paresthesias, incontinence, fevers. CC: Left hip pain Complicating co-morbidities: History of obesity and type 2 diabetes Data collected from: Previous notes Medical records reviewed: Patient was last seen in the emergency department 2 years ago due to a gastrocnemius muscle tear. History of obesity and type 2 diabetes. Differential considered, but not limited to: Fracture, sprain, septic joint, spinal cord injury Exam documented above, pertinent findings include: Some tenderness to palpation to the lateral hip Lab Test results independently reviewed as above. Pertinent findings: None obtained Imaging studies independently reviewed: Left hip x-ray accident negative for acute findings Scores Used: None MIPS Elements: None Consultations: None Treatments: IM Toradol Re-evaluations: None Discussion: Discussed plan with the patient was comfortable with the plan Diagnosis: Left hip sprain Disposition: see below, along with detailed discharge instructions that have been reviewed with patient as well as indications for ED re-evaluation and additional outpatient follow up Discharge Plan Departure Patient Disposition: Home Clinical Impression: Sprain of left hip Activity Restrictions/Additional Instructions: Thank you for coming to the [facility] Emergency Department today. As we discussed the x-ray showed no acute fractures or other bony abnormalities. The Toradol should help with the pain. The muscle relaxants should also help. I recommend he take ibuprofen and Tylenol at home as well as continue with the physical therapy that you have been doing. Please return to the emergency department if you develop any significant new or worsening pain, urinary or bowel incontinence, numbness between her legs, or any other concerning signs or symptoms. I hope you feel better soon. Please follow up with your primary care provider within a week if your symptoms continue. If you do not have a primary care provider please contact the [facility] Resource line at [phone]. They will ask some questions about your medical history and help you get set up with a provider in the community. Prescriptions: New cyclobenzaprine 10 mg tablet 10 mg PO TID PRN (Reason: muscle spasm) Qty: 30 0RF No Action coenzyme Q10 100 mg capsule 100 mg PO DAILY cyanocobalamin (vitamin B-12) 5,000 mcg capsule 10,000 mcg PO DAILY Saccharomyces boulardii 10 billion cell capsule 30,000 mmu cells PO DAILY magnesium oxide 400 mg magnesium tablet 400 mg PO BID amlodipine 5 mg tablet 5 mg PO DAILY Qty: 90 3RF atorvastatin 80 mg tablet 80 mg PO DAILY Qty: 90 3RF carvedilol 12.5 mg tablet 12.5 mg PO BID Qty: 180 3RF Lantus Solostar U-100 Insulin 100 unit/mL (3 mL) insulin pen 30 unit SUBCUT BID Qty: 54 3RF Humalog KwikPen Insulin 100 unit/mL insulin pen 20 - 30 unit SUBCUT 5XD Qty: 135 3RF losartan 100 mg tablet 100 mg PO DAILY Qty: 90 3RF metformin 850 mg tablet 850 mg PO TID Qty: 270 3RF tamsulosin 0.4 mg capsule 0.8 mg PO DAILY Qty: 60 12RF omeprazole 20 mg capsule,delayed release(DR/EC) 20 mg PO DAILY Qty: 90 3RF (DME) BD Ultra-Fine Short [place] 31g x 5'16 See Rx Instructions .Route .MEDSUPPLY Qty: 400 3RF Rx Instructions: Use as directed for Insulin Injections (DME) pen needle, diabetic [BD Ultra-Fine Short Pen Needle] 31 gauge x 5/16 needle See Rx Instructions .ROUTE .MEDSUPPLY Qty: 1200 Rx Instructions: As directed nitroglycerin 0.4 mg Tablet, Sublingual 0.4 mg SUBLINGUAL PRN PRN (Reason: Chest Pain) Patient Comments: Hasn't needed since stents aspirin 81 mg Tablet,Chewable 81 mg PO DAILY cholecalciferol (vitamin D3) [Vitamin D3] 5,000 unit Tablet 5,000 unit PO DAILY acetaminophen 500 mg capsule 500 mg PO Q6H PRN cannabidiol 100 mg/mL solution 2,000 mg PO ONCE Referrals: Madi Parra MD [Primary Care Provider] - Stand Alone Forms: Patient Portal/API ED Sign-out <Lisa Cerrato DO - Last Filed: 11/16/23 10:15> Cosign ED Attending Cosignature Attestation: I was immediately available in the department for consultation.
--- NOTE | 2023-11-15 11:53 | DI.RAD.S_ITS ---
PROCEDURE: XR HIP W PEL IF DONE LT 2V INDICATIONS: Acute on chronic L hip pain TECHNIQUE: AP pelvis with lateral view(s) of the left hip(s). COMPARISON: None. FINDINGS: Bones: No fractures or dislocations. Pelvic ring appears intact. No suspicious bony lesions. Mild bilateral hip degenerative change. Soft tissues: The visualized bowel gas pattern is normal. No suspicious soft tissue calcifications. IMPRESSION: No acute bony abnormality. Mild bilateral hip degenerative change. Dictated by: Felice Harrell M.D. on 11/15/2023 at 13:00 Approved by: Felice Harrell M.D. on 11/15/2023 at 13:01
[2023-11-15] MEDS: KETOROLAC 30 MG/ML VIAL 15 MG IM (13:20)
[2023-11-15 13:27] VITALS: BP 169/70; PULSE 60; O2SAT 97
== END 2023-11-15 13:30 | disposition home or self-care (01) ==
PROVIDERS: Emergency Provider Physician Assistant Medical; Family Provider Internal Medicine; PCP Internal Medicine
DX: S73.102A Unspecified sprain of left hip, initial encounter (principal); X58.XXXA Exposure to other specified factors, initial encounter
CPT/HCPCS: 73502; 96372; 99283; J1885

== ENCOUNTER → 2024-01-17 07:26 | Outpatient (CLI) | payer MEDICARE, SELFPAY ==
[2024-01-19 08:10] LABS: PSA Free % 16.1 % (.); PSA, Total 8.9 ng/mL (0.0-4.0)
== END ==
PROVIDERS: Family Provider Internal Medicine; PCP Internal Medicine; Referring Provider Urology; Visit Provider Urology
DX: R97.20 Elevated prostate specific antigen [PSA] (principal)
CPT/HCPCS: 36415; 84153; 84154

== ENCOUNTER → 2024-04-17 07:19 | Outpatient (CLI) | payer MEDICARE, SELFPAY ==
[2024-04-18 09:36] LABS: PSA Free % 17.8 % (.); PSA, Total 8.7 ng/mL (0.0-4.0)
== END ==
PROVIDERS: Family Provider Internal Medicine; PCP Internal Medicine; Referring Provider Urology; Visit Provider Urology
DX: R97.20 Elevated prostate specific antigen [PSA] (principal); Z80.42 Family history of malignant neoplasm of prostate
CPT/HCPCS: 36415; 84153; 84154

== ENCOUNTER → 2024-04-21 07:09 | Outpatient (CLI) | payer MEDICARE, SELFPAY ==
[2024-04-21 08:22] LABS: Alanine Aminotransferase 25 IU/L (<50); Albumin 4.1 g/dL (3.5-5.0); Albumin Globulin Ratio 1.6 (1.0-2.8); Alkaline Phosphatase 56 U/L (38-126); Aspartate Aminotransferase 22 IU/L (17-59); BUN Creatinine Ratio 16.9 (6-22); Bilirubin Total 0.8 mg/dL (0.2-1.3); Blood Urea Nitrogen 13 mg/dL (9-20); Calcium 9.3 mg/dL (8.4-10.2); Carbon Dioxide 25 mmol/L (22-32); Chloride 103 mmol/L (98-107); Cholesterol 143 mg/dL (140-199); Estimated Glomerular Filt Rate > 60 mL/min (>60); Globulin 2.6 g/dL (1.7-4.1); Glucose 222 mg/dL (80-110); HDL Cholesterol 45 mg/dL (40-60); HEMOLYSIS < 15 (0-50); LDL Cholesterol Calculated 82 mg/dL (<100); Magnesium 1.6 mg/dL (1.6-2.3); Potassium 4.4 mmol/L (3.4-5.1); Sodium 136 mmol/L (137-145); Total Protein 6.7 g/dL (6.3-8.2); Triglycerides 80 mg/dL (35-150)
== END ==
LOC: LAB 07:11
PROVIDERS: Family Provider Internal Medicine; PCP Internal Medicine; Referring Provider Specialist; Visit Provider Specialist
DX: I10 Essential (primary) hypertension (principal); E78.2 Mixed hyperlipidemia; I25.10 Atherosclerotic heart disease of native coronary artery without angina pectoris
CPT/HCPCS: 36415; 80053; 80061; 83735

== ENCOUNTER → 2024-05-14 08:36 | Outpatient (CLI) | payer MEDICARE, SELFPAY ==
[2024-05-14 09:15] LABS: Hemoglobin 12.1 g/dL (13.5-17.5); Mean Corpuscular Hemoglobin 26.5 PG (26-34); Platelet Count 195 X10^3/uL (150-400); Red Blood Cell Count 4.58 X10^6/uL (4.5-5.9); Red Cell Distribution Width 14.7 % (11.6-14.8); White Blood Cell Count 6.5 X10^3/uL (4.5-11.0)
[2024-05-14 09:44] LABS: HEMOLYSIS < 15 (0-50); Iron 47 ug/dL (49-181)
[2024-05-14 09:49] LABS: BUN Creatinine Ratio 16.5 (6-22); Blood Urea Nitrogen 13 mg/dL (9-20); Calcium 9.1 mg/dL (8.4-10.2); Carbon Dioxide 24 mmol/L (22-32); Chloride 103 mmol/L (98-107); Estimated Glomerular Filt Rate > 60 mL/min (>60); Glucose 170 mg/dL (80-110); HEMOLYSIS < 15 (0-50); Potassium 4.7 mmol/L (3.4-5.1); Sodium 133 mmol/L (137-145)
[2024-05-14 09:56] LABS: Percent Iron Saturation 12 % (20-50); Total Iron Binding Capacity 395 ug/dL (261-462); Transferrin 332 mg/dL (206-381)
[2024-05-14 10:17] LABS: TSH w/ Reflex to FT4 2.22 uIU/mL (0.47-4.68)
[2024-05-14 10:22] LABS: Ferritin 6 ng/mL (18-464)
[2024-05-14 10:37] LABS: Vitamin B12 > 1000 pg/mL (239-931)
[2024-05-18 09:36] LABS: Albumin 3.5 g/dL (2.9-4.4); Alpha-1-Globulin 0.2 g/dL (0.0-0.4); Alpha-2-Globulin 0.8 g/dL (0.4-1.0); Gamma Globulin 0.8 g/dL (0.4-1.8); Globulin Total 2.9 g/dL (2.2-3.9); Protein, Total 6.4 g/dL (6.0-8.5)
== END ==
PROVIDERS: Family Provider Internal Medicine; PCP Internal Medicine; Referring Provider Internal Medicine; Visit Provider Internal Medicine
DX: E11.59 Type 2 diabetes mellitus with other circulatory complications (principal); E53.8 Deficiency of other specified B group vitamins; E78.2 Mixed hyperlipidemia; R77.8 Other specified abnormalities of plasma proteins; E61.1 Iron deficiency; I25.10 Atherosclerotic heart disease of native coronary artery without angina pectoris
CPT/HCPCS: 36415; 80048; 82607; 82728; 83036; 83540; 83550; 84155; 84165; 84443; 85027

== ENCOUNTER → 2024-07-16 07:15 | Outpatient (CLI) | payer MEDICARE, SELFPAY ==
[2024-07-18 07:08] LABS: PSA Free % 16.5 % (.); PSA, Total 9.7 ng/mL (0.0-4.0)
== END ==
PROVIDERS: Family Provider Internal Medicine; PCP Internal Medicine; Referring Provider Urology; Visit Provider Urology
DX: R97.20 Elevated prostate specific antigen [PSA] (principal)
CPT/HCPCS: 36415; 84153; 84154

== ENCOUNTER → 2024-10-12 08:01 | Outpatient (CLI) | payer MEDICARE, SELFPAY ==
[2024-10-12 09:05] LABS: Alanine Aminotransferase 21 IU/L (<50); Albumin 4.2 g/dL (3.5-5.0); Albumin Globulin Ratio 1.7 (1.0-2.8); Alkaline Phosphatase 62 U/L (38-126); Aspartate Aminotransferase 24 IU/L (17-59); Bilirubin Total 0.8 mg/dL (0.2-1.3); Blood Urea Nitrogen 15 mg/dL (9-20); Calcium 9.3 mg/dL (8.4-10.2); Carbon Dioxide 22 mmol/L (22-32); Chloride 104 mmol/L (98-107); Estimated Glomerular Filt Rate > 60 mL/min (>60); Globulin 2.5 g/dL (1.7-4.1); Glucose 143 mg/dL (70-99); HEMOLYSIS < 15 (0-50); Magnesium 1.9 mg/dL (1.6-2.3); Potassium 4.4 mmol/L (3.4-5.1); Sodium 137 mmol/L (137-145); Total Protein 6.7 g/dL (6.3-8.2)
[2024-10-13 07:09] LABS: PSA Free % 15.6 % (.); PSA, Total 10.8 ng/mL (0.0-4.0)
[2024-10-14 17:40] LABS: Cholesterol, Total 118 mg/dL (100-199); HDL-Cholesterol 43 mg/dL (>39); HDL-Particle (Total) 26.7 umol/L (>=30.5); Historical Reading Comment: (.); LDL Particle 827 nmol/L (<1000); LDL Size 20.7 nm (>20.5); LDL-Cholsterol 59 mg/dL (0-99); LP-IR Score 53 (<=45); Small LDL- Particle 399 nmol/L (<=527); Triglycerides 80 mg/dL (0-149)
== END ==
PROVIDERS: Urology; Family Provider Internal Medicine; PCP Internal Medicine; Referring Provider Specialist; Visit Provider Specialist
DX: I10 Essential (primary) hypertension (principal); E78.2 Mixed hyperlipidemia; R97.20 Elevated prostate specific antigen [PSA]
CPT/HCPCS: 36415; 80053; 80061; 83704; 83735; 84153; 84154

== ENCOUNTER → 2024-11-05 07:26 | Outpatient (CLI) | payer MEDICARE, SELFPAY ==
[2024-11-05 08:51] LABS: Blood Urea Nitrogen 13 mg/dL (9-20); Calcium 9.2 mg/dL (8.4-10.2); Carbon Dioxide 24 mmol/L (22-32); Chloride 105 mmol/L (98-107); Estimated Glomerular Filt Rate > 60 mL/min (>60); Glucose 112 mg/dL (70-99); HEMOLYSIS < 15 (0-50); Potassium 4.4 mmol/L (3.4-5.1); Sodium 138 mmol/L (137-145)
[2024-11-05 08:58] LABS: Hemoglobin A1C% w Est Avg Glu 7.1 % (4.0-6.0)
== END ==
PROVIDERS: Family Provider Internal Medicine; PCP Internal Medicine; Referring Provider Internal Medicine; Visit Provider Internal Medicine
DX: E11.59 Type 2 diabetes mellitus with other circulatory complications (principal)
CPT/HCPCS: 36415; 80048; 83036

== ENCOUNTER 2025-01-19 07:56 | Day surgery (SDC) | payer MEDICARE, SELFPAY ==
[2025-01-13 09:59] VITALS: BMI 36.8
[2025-01-19] VITALS (10 sets, daily range): BP systolic 92–137; BP diastolic 44–65; PULSE 48–64; RESP 12–20; TEMP 36.5–36.7; O2SAT 91–98; BMI 36.8
[2025-01-19] MEDS: ACETAMINOPHEN 325 MG TABLET 975 MG PO (09:01)
[2025-01-19] MEDS: LACTATED RINGERS 1,000 ML 42 ML IV (09:02)
--- NOTE | 2025-01-19 09:22 | PM.PREOP ---
Pre-operative Note COVID-19 COVID-19 status: Not tested Interval Note History & Physical reviewed/Exam performed by Physician: Yes Changes to H&P: No
--- NOTE | 2025-01-19 09:40 | SUR.OPER ---
Lateral (right side down) head on pillow, legs bent, nurse at side to support patient
[2025-01-19] MEDS: LIDOCAINE 1% 20 ML INJ (09:46)
--- NOTE | 2025-01-19 09:57 | PM.OP.1 ---
Operative Date/Time/Diagnoses Date of procedure: 01/19/25 Time of procedure: 09:40 Pre-op diagnosis: Elevated PSA Post-op diagnosis: same Procedure & Clinicians Procedure: Transrectal ultrasound guided prostate biopsy Same procedure(s) as scheduled: Yes Indications: 79 y/o M noted to have an elevated PSA that continues to increase in the setting of an extensive FH of prostate cancer and very little desire to have a repeat MARIAJOSE performed as well as a prostate MRI from November of 2024 that noted a PIRADS 4 lesion. Discussed elevated PSA in detail and that an elevated PSA value does not represent cancer and that it can be elevated for a multitude of reasons (recent UTI, mars catheterization, urinary obstruction, multiple ejaculations, colonoscopy, etc...). Also discussed that a TRUS prostate biopsy may not always identify prostate cancer that is present as it is a small sampling of the prostate gland and small foci of cancer may be missed. Lastly, discussed that some men may require multiple biopsies over several years in order to properly diagnose their prostate cancer. Discussed the risks of the procedure to include but not limited to pain, bleeding, infection, blood in the stool for several weeks, blood and/or blood clots within the urine for several weeks as well as bloody ejaculate for several months. Up to 1-2% of men may get an infection from their biopsy that is severe enough that they require admission to the hospital and administration of IV antibiotics. To mitigate this risk, he will use an enema the night before and the morning of the procedure as well as take an antibiotic the morning before, the morning of and the morning after his biopsy. This will be scheduled under anesthesia per his preference. Surgeon: Alex Tatum Click Yes if Unassisted: Yes Anesthesia Type: General Operative Notes Findings: 80g prostate Closure Type: not applicable Specimen(s): other (prostate biopsy) Applied: none Estimated Blood Loss (mL): 2 Procedure in detail: Transrectal Ultrasound of the Prostate with Needle Biopsy: [id number] Indication: 79 y/o M w/ strong family history of prostate cancer, an elevated PSA and a concerning PIRADS 4 lesion on his prostate MRI. Following informed consent and induction of general anesthesia, he was transitioned into the left lateral decubitus position. The ultrasound probe was then coated in lubrication and gently inserted into his rectum. A total of 10cc of 1% Lidocaine was used for local anesthetic throughout the procedure. Transrectal US images of his prostate were then performed and a volume of 80 cc was calculated. A total of 12 biopsies were taken from the prostate and submitted as six different pathologic specimens (right base, right mid, right apex, left base, left mid, left apex). An additional 3 biopsies were then taken from the aforementioned PIRADS 4 lesion and submitted as Lesion 1. Hemostasis was evaluated at the end of the procedure and noted to be excellent. He tolerated the procedure well without any complications and the ultrasound probe was gently removed from his rectum. Complications: none Post-operative Condition: stable Disposition: PACU Plan for aftercare: Discharge home from PACU. Will return to Urology clinic in 2-3 business weeks to discuss his pathology results.
[2025-01-19] MEDS: KETOROLAC 30 MG/ML VIAL 15 MG IV (10:19)
--- NOTE | 2025-01-19 11:03 | SUR.PHASEII ---
Pt voided prior to d/c states he had no trouble voiding.
== END 2025-01-19 11:04 | disposition home or self-care (01) ==
PROVIDERS: PCP Internal Medicine; Referring Provider Internal Medicine; Visit Provider Urology
PROC: 0VJ43ZZ Inspection of Prostate and Seminal Vesicles, Percutaneous Approach (ICD-10-PCS; CPT 55876; principal; 2025-01-19 10:00)
DX: R97.20 Elevated prostate specific antigen [PSA] (principal); Z80.42 Family history of malignant neoplasm of prostate; R35.0 Frequency of micturition; R35.1 Nocturia; R39.12 Poor urinary stream; Z79.82 Long term (current) use of aspirin
CPT/HCPCS: 55700; 76872; 76942; 82962; J1100; J1885; J2405; J2704

== ENCOUNTER → 2025-02-24 10:14 | Outpatient (CLI) | payer MEDICARE, SELFPAY ==
[2025-02-24 11:46] LABS: COVID-19 CEPHEID 4-PLEX PCR Negative (Negative); Influenza A - CEPHEID Flu A NEGATIVE (NEGATIVE); Influenza B - CEPHEID Flu B NEGATIVE (NEGATIVE)
== END ==
PROVIDERS: PCP Internal Medicine; Visit Provider Nurse Practitioner Family
DX: J02.9 Acute pharyngitis, unspecified (principal)
CPT/HCPCS: 87637

== ENCOUNTER → 2025-02-24 10:41 | Outpatient (CLI) | payer MEDICARE, SELFPAY ==
--- NOTE | 2025-02-24 10:45 | DI.RAD.S_ITS ---
PROCEDURE: XR CHEST 2V INDICATIONS: Cough TECHNIQUE: 2 views of the chest were acquired. COMPARISON: [facility], , CHEST 1 VIEW, 09/22/2016, 0:25. FINDINGS: Heart, mediastinum and pulmonary vascular: Heart is normal in size and configuration. Mediastinum is unremarkable. Pulmonary vascular is normal. Lungs: Clear Pleural spaces: Normal-no effusions or pneumothorax. IMPRESSION: Normal chest. Dictated by: Riley Camacho M.D. on 02/25/2025 at 12:44 Approved by: Riley Camacho M.D. on 02/25/2025 at 12:45
== END ==
PROVIDERS: PCP Internal Medicine; Referring Provider Internal Medicine; Visit Provider Nurse Practitioner Family
DX: R05.9 Cough, unspecified (principal); J02.9 Acute pharyngitis, unspecified
CPT/HCPCS: 71046; 87637

== ENCOUNTER → 2025-02-26 09:59 | Outpatient (CLI) | payer MEDICARE, SELFPAY ==
--- NOTE | 2025-02-26 10:04 | DI.CT.S_ITS ---
PROCEDURE: CT CHEST ABD PEL W CON INDICATIONS: 80 y/o M w/ newly diagnosed prostate cancer, eval for mets TECHNIQUE: After the administration of intravenous contrast, 5 mm thick sections acquired from the lung apices to the symphysis. 5 mm coronal and sagittal reformats were performed, with additional 7 mm MIP reformats through the lungs. For radiation dose reduction, the following was used: automated exposure control, adjustment of mA and/or kV according to patient size. COMPARISON: [facility], , PELVIS PROSTATE SCREENING PROTOCOL, 12/07/2024, 13:50. [facility], [place], [place] BONE SCAN WHOLE BODY, 02/26/2025, 14:10. FINDINGS: Image quality: Excellent. CHEST: Lower Neck: No enlarged lymph nodes. Thyroid: No thyroid nodules which require sonographic follow up, per consensus guidelines. Axillae: No enlarged lymph nodes. Chest Wall: Unremarkable. Lungs and Pleura: No pneumothorax or pleural effusions. No consolidation or suspicious nodules. Note is made of bilaterally mild peribronchial soft tissue prominence, consistent with chronic bronchitis. Heart: Heart size is normal. Small anterior pericardial effusion. Thoracic Vessels: The aorta and pulmonary arteries demonstrate normal size. Mediastinum and Mei: No enlarged lymph nodes. Esophagus: No wall thickening. No hiatal hernia. ABDOMEN: Liver: No solid mass. Gallbladder: No wall thickening, single 2 x 3 mm dependent layering calcified gallstone.. Biliary ducts: No biliary dilation. Pancreas: No ductal dilation. Spleen: Size is within normal limits. Adrenal Glands: No adrenal nodules. Kidneys and Ureters: No hydronephrosis. No solid mass. No complex renal cystic lesion which requires follow up. Stomach and Bowel: Normal colonic caliber, without significant wall thickening. Peritoneum: No abnormal intraperitoneal fluid. No free air. Ventral Wall: No significant ventral hernia. Abdominal Nodes: No retroperitoneal or mesenteric adenopathy by size criteria. Vessels: Aorta and inferior vena cava are normal in size. PELVIS: Pelvic Organs: Unremarkable, prostate gland is mildly enlarged.. Bladder: No bladder wall thickening, accounting for underdistention. Pelvic Nodes: No enlarged lymph nodes. Miscellaneous: No inguinal hernias are seen on the left but there is a fat containing inguinal hernia the right. Bones: No aggressive osseous abnormality. No osteoblastic metastatic disease is found. IMPRESSION: 1. Small pericardial effusion anteriorly. 2. Mild prostate gland enlargement, no mass extending through the prostate capsule is found. No regional adenopathy is seen. No osteolytic or blastic bone lesion identified. 3. Incidental note is made of a fat containing right inguinal hernia, and of a small dependent layering gallstone that is calcified within the gallbladder lumen. Chronic bronchitis bilaterally. Dictated by: Yoel Wilson M.D. on 02/26/2025 at 15:49 Approved by: Yoel Wilson M.D. on 02/26/2025 at 15:56
--- NOTE | 2025-02-26 10:04 | DI.NM.S_ITS ---
PROCEDURE: NM BONE SCAN WHOLE BODY RADIOPHARMACEUTICAL: 21.9 mCi Tc-99m MDP IV. INDICATIONS: 80 y/o M w/ newly diagnosed prostate cancer, eval for mets TECHNIQUE: Delayed whole-body scintigrams were obtained approximately 3-4 hours after intravenous injection of radiotracer. Anterior and posterior views were acquired from vertex to feet. Additional left and right oblique views of the pelvis were obtained. COMPARISON: [facility], CT, CT CHEST ABD PEL W CON, 02/26/2025, 10:46. FINDINGS: Radiotracer excretion is seen in the urinary system. Uptake in the upper and lower extremities favored to be degenerative. No high suspicion area of uptake identified. IMPRESSION: No high suspicion area of radiotracer uptake identified to suggest osteoblastic metastasis. Dictated by: Zach Thomas M.D. on 02/26/2025 at 15:42 Approved by: Zach Thomas M.D. on 02/26/2025 at 15:43
[2025-02-26 10:31] LABS: Estimated Glomerular Filt Rate > 60 mL/min (>60)
== END ==
PROVIDERS: PCP Internal Medicine; Referring Provider Urology; Visit Provider Urology
DX: C61 Malignant neoplasm of prostate (principal); I31.39 Other pericardial effusion (noninflammatory); K80.20 Calculus of gallbladder without cholecystitis without obstruction; K40.90 Unilateral inguinal hernia, without obstruction or gangrene, not specified as recurrent; J42 Unspecified chronic bronchitis
CPT/HCPCS: 36415; 71260; 74177; 78306; 82565; A9503; Q9967

== ENCOUNTER → 2025-05-10 07:27 | Outpatient (CLI) | payer MEDICARE, SELFPAY ==
[2025-05-10 09:28] LABS: Alanine Aminotransferase 22 IU/L (<50); Albumin 4.3 g/dL (3.5-5.0); Albumin Globulin Ratio 1.5 (1.0-2.8); Alkaline Phosphatase 65 U/L (38-126); Blood Urea Nitrogen 14 mg/dL (9-20); Calcium 9.2 mg/dL (8.4-10.2); Carbon Dioxide 19 mmol/L (22-32); Chloride 106 mmol/L (98-107); Cholesterol 131 mg/dL (140-199); Estimated Glomerular Filt Rate > 60 mL/min (>60); Globulin 2.8 g/dL (1.7-4.1); Glucose 128 mg/dL (70-99); HDL Cholesterol 53 mg/dL (40-60); HEMOLYSIS < 15 (0-50); Magnesium 1.8 mg/dL (1.6-2.3); Potassium 4.2 mmol/L (3.4-5.1); Sodium 136 mmol/L (137-145); Total Protein 7.1 g/dL (6.3-8.2); Triglycerides 85 mg/dL (35-150)
== END ==
PROVIDERS: PCP Internal Medicine; Referring Provider Specialist; Visit Provider Specialist
DX: I10 Essential (primary) hypertension (principal); E78.2 Mixed hyperlipidemia
CPT/HCPCS: 36415; 80053; 80061; 83735